=== PATIENT | female | born 1945 | race Caucasian/White ===

== ENCOUNTER 2017-12-16 06:14 | Emergency (ER) | payer OTHER ==
[2017-12-16] MEDS ORDERED: KETOROLAC 30 MG/ML INJ ONE (07:02)
[2017-12-16] MEDS ORDERED: NA CHLORIDE 0.9% 1,000 ML ONE (07:02)
[2017-12-16] MEDS ORDERED: DEXAMETHASONE 10 MG/ML VIAL ONE (07:02)
[2017-12-16 07:33] LABS: Absolute Lymphocytes (CBC) 0.8 K/uL (0.7-4.9); Absolute Monocytes 1.3 K/uL (0.1-1.3); Absolute Neutrophil 21.9 K/uL (1.8-8.0); Basophils % 0.3 % (0-1.3); Hematocrit 37.5 % (36.0-45.0); Lymphocytes % 3.2 % (15.3-44.8); MCH 30.9 pg (27.0-35.0); MPV 7.8 fL (7.6-11.3); Monocytes % 5.4 % (3.3-12.3); RBC Red Blood Cell Count 3.99 M/uL (3.86-4.86)
[2017-12-16 07:49] LABS: Albumin 3.6 g/dL (3.4-5.0); Bilirubin Total 0.3 mg/dL (0.2-1.0); Potassium 3.2 mmol/L (3.5-5.1); Protein, Total 6.4 g/dL (6.4-8.2)
[2017-12-16 08:01] LABS: Blood Morphology Comment NOT SEEN (NOT SEEN); Platelet Estimate ADEQ; Urine White Blood Cell Casts OK
--- NOTE | 2017-12-16 08:52 | RAD REPORT ---
EXAM DESCRIPTION: CT - Abdomen Pelvis W Contrast - 12/16/2017 8:23 am CLINICAL HISTORY: Abdominal pain, back pain, nausea, elevated white blood cell count COMPARISON: None. TECHNIQUE: Biphasic, helical CT imaging of the abdomen and pelvis was performed following 100 ml non -ionic IV contrast. No oral contrast was given. All CT scans are performed using dose optimization technique as appropriate and may include automated exposure control or mA/KV adjustment according to patient size. FINDINGS: No suspicious findings in the lung bases. No pericardial effusion. A 12 millimeter calcifi ed granuloma is present lower left lung field. The liver, spleen, and pancreas show no suspicious findings. Gallbladder and biliary tree are also wi thout suspicious finding. Symmetric renal function is seen with no hydronephrosis or suspicious renal mass. No pyelonephritis o r acute renal parenchymal process. No dilated bowel loops or bowel wall thickening. A few mildly prominent small bowel loops are present . This is not outside of normal range. A small bowel enteritis would be possible. No appendicitis fin dings. Patient has mild sigmoid diverticulosis without diverticulitis. There is minimal diverticulosi s elsewhere in the colon. No active colon process. No free air, free fluid or inflammatory stranding. Fat extends into the origin of the left inguinal canal. No abdominal wall hernia changes otherwise noted. No mass or bulky lymphadenopathy. The urinary bladder is without significant finding. No adren al abnormality. Disc and bony degenerative changes are present. No pathologic bone process identifiable. IMPRESSION: No obstruction, free air or surgically emergent finding. Minimal prominence of the small bowel loops. The this is subtle finding but small bowel enteritis wou ld be possible. No focal abnormality seen as a source for elevated white blood cell count.
[2017-12-16 09:38] LABS: Urine Blood NEGATIVE (NEG); Urine Glucose NEGATIVE (NEG); Urine Protein NEGATIVE (NEG); Urine Specific Gravity 1.015 (1.005-1.030); Urine pH 5.5 (5.0-7.0)
--- NOTE | 2017-12-16 10:04 | RAD REPORT ---
EXAM DESCRIPTION: RAD - Chest Single View - 12/16/2017 9:47 am CLINICAL HISTORY: Back pain, chest pain, sepsis COMPARISON: April 2014 TECHNIQUE: AP portable chest image was obtained 0936 hours . FINDINGS: Patient has interstitial fibrotic lung change. Interstitial markings in both lower lung fi elds have increased from the comparison. This is in part due to shallow inspiration. Progressive fibr osis or interstitial infiltrate can both have this appearance. No cardiomegaly or vascular engorgemen t. Significant failure or volume overload are doubtful. Increased fullness in the right peritracheal region is present. No similar finding on the prior study. While this may simply be summation of vascu lature due to portable imaging, development of a mediastinal or hilar mass cannot be excluded. No siria surable pleural effusion and no pneumothorax. No gross bony abnormality seen. No acute aortic finding s suspected. IMPRESSION: Prominent interstitial lung pattern progressive from 2013. Progressive fibrosis and inte rstitial pneumonia can both have this appearance. Right hilar and right peritracheal fullness is present, new from the prior examination. Vascular summation artifact and malignancy can have a similar appearance. Follow-up CT chest imaging is recommended to clear the mediastinum.
--- NOTE | 2017-12-16 11:18 | RAD REPORT ---
EXAM DESCRIPTION: CT - Thorax Wo Con - 12/16/2017 10:39 am CLINICAL HISTORY: Chest pain abnormal chest x-ray COMPARISON: Chest x-ray December 16, 2017 TECHNIQUE: Computed axial tomography of the chest was obtained. Contrast was not requested. All CT scans are performed using dose optimization technique as appropriate and may include automated exposure control or mA/KV adjustment according to patient size. FINDINGS: The evaluation of mediastinum, brooke and vessels is limited secondary to lack of IV contras t administration. A calcified granulomas present within the left lower lobe. A lung consolidation is not seen. Centrilo bular and paraseptal emphysema is present. The described prominence of the interstitial lung pattern on the chest x-ray represents mostly pulmonary vascularity. Mild subpleural interstitial lung opaciti es likely are chronic. No mediastinal or hilar lymphadenopathy is seen. A pleural effusion is not present. A pericardial effusion is not seen. A small hiatal hernia is present. IMPRESSION: COPD
--- NOTE | 2017-12-16 11:39 | ER ---
Nurse's Notes [facility] Name: Johnna Brown Age: 72 yrs Sex: Female : 1945 Arrival Date: 12/16/2017 Time: 06:16 Bed 7 Private MD: Diagnosis: COPD;Acute Gastroenteritis;Low back pain Presentation: 12/16 06:23 Presenting complaint: Patient states: lower back pain since 399. pt stated she "feels ak1 dry" pt c/o intermittent nausea since 399. Transition of care: patient was not received from another setting of care. Onset of symptoms was December 16, 2017. Risk Assessment: Do you want to hurt yourself or someone else? Patient reports no desire to harm self or others. Initial Sepsis Screen: Does the patient meet any 2 criteria? No. Patient's initial sepsis screen is negative. Does the patient have a suspected source of infection? No. Patient's initial sepsis screen is negative. Care prior to arrival: None. 06:23 Method Of Arrival: Wheelchair ak1 06:23 Acuity: KYLE 4 ak1 Triage Assessment: 06:27 General: Appears uncomfortable, Behavior is calm, cooperative. Pain: Complains of pain ak1 in back. EENT: No signs and/or symptoms were reported regarding the EENT system. Neuro: No deficits noted. Cardiovascular: No deficits noted. Respiratory: No deficits noted. GI: No signs and/or symptoms were reported involving the gastrointestinal system. : No signs and/or symptoms were reported regarding the genitourinary system. Derm: No signs and/or symptoms reported regarding the dermatologic system. Musculoskeletal: Reports pain in back. Historical: - Allergies: 06:47 No Known Allergies; lp1 - Home Meds: 06:46 verapamil 240 mg oral TbER once daily [Active]; lovastatin 10 mg oral tab once daily lp1 [Active]; meloxicam 15 mg oral tab 0.5 tab once daily [Active]; Flexeril 10 mg oral tab 2 tab daily [Active]; calcium carbonate 600 mg (1,500 mg) Oral tab daily [Active]; Fish Oil 1,000 mg oral cap daily [Active]; Cinnamon 1000 mg oral cap daily [Active]; aspirin 81 mg Oral TbEC 1 tab once daily [Active]; zolpidem 10 mg Oral tab 1 tab once daily [Active]; ibandronate 150 mg oral tab 1 tab once moly [Active]; tramadol 50 mg Oral tab twice a day [Active]; - PMHx: 06:27 Hypertension; Back pain; ak1 - PSHx: 06:27 Hysterectomy; Appendectomy; ak1 - Immunization history:: Adult Immunizations unknown. - Social history:: Smoking status: Patient uses tobacco products, smokes one pack cigarettes per day. - Ebola Screening: : No symptoms or risks identified at this time. Screenin:28 Abuse screen: Denies threats or abuse. Denies injuries from another. Nutritional ak1 screening: No deficits noted. Tuberculosis screening: No symptoms or risk factors identified. Fall Risk None identified. Assessment: 06:36 General: Appears in no apparent distress. comfortable, Behavior is calm, cooperative. rv Pain: Complains of pain in lumbar area, left low back and right low back. Neuro: Level of Consciousness is awake, alert, obeys commands, Oriented to person, place, time, situation. Cardiovascular: Capillary refill < 3 seconds. Respiratory: Airway is patent. GI: No signs and/or symptoms were reported involving the gastrointestinal system. : No signs and/or symptoms were reported regarding the genitourinary system. EENT: No signs and/or symptoms were reported regarding the EENT system. Derm: Skin is intact. 07:11 General: Appears in no apparent distress. comfortable, Behavior is calm, cooperative, hj appropriate for age. Pain: Complains of pain in right low back and left low back and lumbar area. Neuro: Level of Consciousness is awake, alert, obeys commands, Oriented to person, place, time, situation, Appropriate for age. Cardiovascular: Capillary refill < 3 seconds Patient's skin is warm and dry. Respiratory: Airway is patent Respiratory effort is even, unlabored, Respiratory pattern is regular, symmetrical. GI: No signs and/or symptoms were reported involving the gastrointestinal system. : No signs and/or symptoms were reported regarding the genitourinary system. EENT: No signs and/or symptoms were reported regarding the EENT system. Derm: No signs and/or symptoms reported regarding the dermatologic system. Musculoskeletal: Reports pain in right low back and left low back and lumbar area. 08:10 Reassessment: Patient and/or family updated on plan of care and expected duration. Pain hj level reassessed. Patient is alert, oriented x 3, equal unlabored respirations, skin warm/dry/pink. wheeled to CT;. 09:26 Reassessment: Patient appears in no apparent distress at this time. Patient and/or ch family updated on plan of care and expected duration. Pain level reassessed. Patient is alert, oriented x 3, equal unlabored respirations, skin warm/dry/pink. Patient states feeling better. Patient states symptoms have improved. Pain: Denies pain. Neuro: Level of Consciousness is awake, alert, obeys commands, Oriented to person, place, time, situation. Respiratory: Airway is patent Respiratory effort is even, unlabored, Breath sounds are coarse bilaterally. GI: No signs and/or symptoms were reported involving the gastrointestinal system. Abdomen is round non-distended, Bowel sounds present X 4 quads. Abd is soft and non tender X 4 quads. : No signs and/or symptoms were reported regarding the genitourinary system. Derm: Skin is intact, Skin is pink, warm \\T\\ dry. 11:04 Reassessment: Patient appears in no apparent distress at this time. Patient and/or ch family updated on plan of care and expected duration. Pain level reassessed. Patient is alert, oriented x 3, equal unlabored respirations, skin warm/dry/pink. pt educated on wait time and x ray results requiring a ct chest to rule out further disease processes's. pt verb understanding. drinking water, states she is comfortable. Patient denies pain at this time. Patient states feeling better. Patient states symptoms have improved. 12:03 Reassessment: Patient appears in no apparent distress at this time. Patient and/or ch family updated on plan of care and expected duration. Pain level reassessed. Patient is alert, oriented x 3, equal unlabored respirations, skin warm/dry/pink. Patient states feeling better. Patient states symptoms have improved. 12:19 Reassessment: [facility] SPEAKS WITH PT AND FAMILY TO REVIEW RESULTS. PT DISCHARGED NOW. Vital Signs: 06:27 BP 154 / 66; Pulse 114; Resp 20; Temp 98.1(TE); Pulse Ox 96% on R/A; Weight 61.23 kg ak1 (R); Height 5 ft. 1 in. (154.94 cm) (R); Pain 10/10; 07:12 BP 149 / 68; Pulse 101; Resp 18; Pulse Ox 97% on R/A; hj 08:23 BP 147 / 66; Pulse 99; Resp 18; Pulse Ox 97% on R/A; hj 09:26 BP 126 / 61; Pulse 85; Resp 14; Temp 98.2; Pulse Ox 96% on R/A; Pain 2/10; ch 11:04 BP 133 / 59; Pulse 84; Resp 20; Temp 98.5; Pulse Ox 94% on R/A; Pain 1/10; ch 12:03 BP 139 / 60; Pulse 79; Resp 18; Temp 98.4; Pulse Ox 99% on R/A; Pain 4/10; ch 06:27 Body Mass Index 25.51 (61.23 kg, 154.94 cm) ak1 ED Course: 06:16 Patient arrived in ED. al2 06:22 Juan Ramon Zamora, RN is Primary Nurse. bp 06:24 Triage completed. ak1 06:27 Arm band placed on Patient placed in an exam room, on a stretcher, on pulse oximetry, ak1 Patient notified of wait time. 06:28 Patient has correct armband on for positive identification. Placed in gown. Bed in low ak1 position. Call light in reach. Side rails up X2. Adult w/ patient. Pulse ox on. NIBP on. 06:46 Nando Broderick MD is Attending Physician. ps1 07:08 Primary Nurse role handed off by Juan Ramon Zamroa, INDIGO ag 07:11 Ziggy Jones, RN is Primary Nurse. hj 08:[address] via stretcher. sj 08:23 CT Abd/Pelvis - W/Contrast In Process Unspecified. EDMS 08:23 CT completed. Patient tolerated procedure well. Patient moved back from CT. sj 09:44 X-ray completed. Portable x-ray completed in exam room. Patient tolerated procedure ml well. 09:47 CXR XRAY In Process Unspecified. EDMS 10:19 Primary Nurse role handed off by Ziggy Jones, INDIGO ch 10:19 Esme Dowd, RN is Primary Nurse. ch 10:[address] In Process Unspecified. EDMS 11:41 Marcial Brock MD is Referral Physician. ps1 12:03 No provider procedures requiring assistance completed. IV discontinued, intact, ch bleeding controlled, No redness/swelling at site. Pressure dressing applied. Administered Medications: 07:11 Drug: Decadron 10 mg Route: IM; Site: left gluteus; rv 07:17 Follow up: Response: No adverse reaction hj 07:12 Drug: NS 0.9% 1000 ml Route: IV; Rate: 1 bolus; Site: right antecubital; rv 12:18 Follow up: IV Status: Completed infusion; IV Intake: 1000ml ch 07:12 Drug: TORadol 30 mg Route: IVP; Site: right antecubital; rv 07:14 Follow up: Response: No adverse reaction hj Intake: 12:18 IV: 1000ml; Total: 1000ml. ch Outcome: 11:39 Discharge ordered by . ps1 12:03 Discharged to home via wheelchair, with family. ch 12:03 Condition: improved 12:03 Discharge instructions given to patient, family, Instructed on discharge instructions, follow up and referral plans. medication usage, Demonstrated understanding of instructions, follow-up care, medications, Prescriptions given X 2. 12:19 Patient left the ED. ch Signatures: Dispatcher [employer] EDMS Esme Dowd RN RN Michelle Nelson Melissa ml Pena, Laura RN RN lp1 Hiwot Bray Amber RN RN ak1 Ziggy Jones RN RN hj Peltier, Brian, Nando Carter RN, MD MD ps1 Love, Angelica al2 Vicente, Ronaldo, RN RN rv Corrections: (The following items were deleted from the chart) 06:46 06:27 Allergies: No Known Allergies; ak1 lp1 06:46 06:27 Home Meds: Verapamil Oral; ak1 lp1 :46 06:27 Home Meds: Lovastatin Oral; ak1 lp1 06:46 06:27 Home Meds: meloxicam oral oral; ak1 lp1 06:46 06:27 Home Meds: Flexeril Oral; ak1 lp1
--- NOTE | 2017-12-16 11:39 | EDPHYS ---
Physician Documentation [facility] Name: Johnna Brown Age: 72 yrs Sex: Female : 1945 Arrival Date: 12/16/2017 Time: 06:16 Bed 7 Private MD: ED Physician Nando Broderick HPI: 12/16 06:55 This 72 yrs old Female presents to ER via Wheelchair with complaints of BODY ps1 ACHES. 06:55 patient with chronic back pain presenting with acute back pain that is radiating down ps1 the leg. Pain rated as moderate to severe. Used to see Dr. Lomeli (pain doctor) but moved out of town. Does not have a pain doctor although she tried [place] and did not want to maintain relationship. No fever. . Historical: - Allergies: 06:47 No Known Allergies; lp1 - Home Meds: 06:46 verapamil 240 mg oral TbER once daily [Active]; lovastatin 10 mg oral tab once daily lp1 [Active]; meloxicam 15 mg oral tab 0.5 tab once daily [Active]; Flexeril 10 mg oral tab 2 tab daily [Active]; calcium carbonate 600 mg (1,500 mg) Oral tab daily [Active]; Fish Oil 1,000 mg oral cap daily [Active]; Cinnamon 1000 mg oral cap daily [Active]; aspirin 81 mg Oral TbEC 1 tab once daily [Active]; zolpidem 10 mg Oral tab 1 tab once daily [Active]; ibandronate 150 mg oral tab 1 tab once moly [Active]; tramadol 50 mg Oral tab twice a day [Active]; - PMHx: 06:27 Hypertension; Back pain; ak1 - PSHx: 06:27 Hysterectomy; Appendectomy; ak1 - Immunization history:: Adult Immunizations unknown. - Social history:: Smoking status: Patient uses tobacco products, smokes one pack cigarettes per day. - Ebola Screening: : No symptoms or risks identified at this time. ROS: 06:55 Constitutional: Negative for fever, chills, and weight loss, Eyes: Negative for injury, ps1 pain, redness, and discharge, Cardiovascular: Negative for chest pain, palpitations, and edema, Respiratory: Negative for shortness of breath, cough, wheezing, and pleuritic chest pain, Abdomen/GI: Negative for abdominal pain, nausea, vomiting, diarrhea, and constipation, MS/Extremity: Negative for injury and deformity, Skin: Negative for injury, rash, and discoloration, Neuro: Negative for headache, weakness, numbness, tingling, and seizure. 06:55 Back: Positive for decreased range of motion, pain with movement, radiated pain. Exam: 06:55 Constitutional: This is a well developed, well nourished patient who is awake, alert, ps1 and in no acute distress. Head/Face: Normocephalic, atraumatic. Chest/axilla: Normal chest wall appearance and motion. Nontender with no deformity. No lesions are appreciated. Cardiovascular: Regular rate and rhythm. No gallops, murmurs, or rubs. Normal PMI, no JVD. No pulse deficits. Respiratory: Lungs have equal breath sounds bilaterally, clear to auscultation and percussion. No rales, rhonchi or wheezes noted. No increased work of breathing, no retractions or nasal flaring. Abdomen/GI: Soft, non-tender, with normal bowel sounds. No distension or tympany. No guarding or rebound. No evidence of tenderness throughout. Skin: Warm, dry with normal turgor. Normal color with no rashes, no lesions, and no evidence of cellulitis. MS/ Extremity: Pulses equal, no cyanosis. Neurovascular intact. Full, normal range of motion. 06:55 Back: pain, that is moderate, ROM is decreased, muscle spasm. Vital Signs: 06:27 BP 154 / 66; Pulse 114; Resp 20; Temp 98.1(TE); Pulse Ox 96% on R/A; Weight 61.23 kg ak1 (R); Height 5 ft. 1 in. (154.94 cm) (R); Pain 10/10; 07:12 BP 149 / 68; Pulse 101; Resp 18; Pulse Ox 97% on R/A; hj 08:23 BP 147 / 66; Pulse 99; Resp 18; Pulse Ox 97% on R/A; hj 09:26 BP 126 / 61; Pulse 85; Resp 14; Temp 98.2; Pulse Ox 96% on R/A; Pain 2/10; ch 11:04 BP 133 / 59; Pulse 84; Resp 20; Temp 98.5; Pulse Ox 94% on R/A; Pain 1/10; ch 12:03 BP 139 / 60; Pulse 79; Resp 18; Temp 98.4; Pulse Ox 99% on R/A; Pain 4/10; ch 06:27 Body Mass Index 25.51 (61.23 kg, 154.94 cm) ak1 MDM: 06:55 Data reviewed: vital signs, nurses notes. ED course: check labs and urine for other ps1 etiology of disease. Decadron IM and toradol, fluids. . 07:06 Patient medically screened. ps1 12/16 06:55 Order name: CBC with Diff; Complete Time: 08:02 ps1 12/16 08:02 Interpretation: Abnormal: WBC 24.0. ps1 12/16 06:55 Order name: CMP; Complete Time: 08:01 ps1 12/16 07:35 Order name: CBC Smear Scan; Complete Time: 08:02 EDMS 12/16 07:37 Order name: CT Abd/Pelvis - W/Contrast; Complete Time: 09:14 ps1 12/16 08:07 Order name: Urine Dipstick--Ancillary (enter results); Complete Time: 09:48 ag 12/16 09:15 Order name: CXR XRAY; Complete Time: 10:10 ps1 12/16 06:55 Order name: Urine Dipstick-Ancillary (obtain specimen); Complete Time: 08:07 ps1 12/16 10:12 Order name: Thorax Wo Con CT; Complete Time: 11:37 ps1 Administered Medications: 07:11 Drug: Decadron 10 mg Route: IM; Site: left gluteus; rv 07:17 Follow up: Response: No adverse reaction 07:12 Drug: NS 0.9% 1000 ml Route: IV; Rate: 1 bolus; Site: right antecubital; rv 12:18 Follow up: IV Status: Completed infusion; IV Intake: 1000ml 07:12 Drug: TORadol 30 mg Route: IVP; Site: right antecubital; rv 07:14 Follow up: Response: No adverse reaction Disposition: 12/16/17 11:39 Discharged to Home. Impression: Acute Gastroenteritis, COPD, Low back pain. - Condition is Stable. - Discharge Instructions: Back Pain, Adult, Musculoskeletal Pain, Nausea and Vomiting, Viral Gastroenteritis. - Prescriptions for Zofran 4 mg Oral Tablet - take 1 tablet by ORAL route every 12 hours As needed; 20 tablet. Medrol (Devan) 4 mg Oral Tablets, Dose Pack - take 1 tablet by ORAL route as directed - follow package instructions; 1 packet. - Medication Reconciliation Form, Thank You Letter, Antibiotic Education, Prescription Opioid Use form. - Follow up: Private Physician; When: As needed; Reason: Recheck today's complaints, Continuance of care, Re-evaluation by your physician. Follow up: Emergency Department; When: As needed; Reason: Fever > 102 F, Worsening of condition. Follow up: Marcial Brock MD; When: Today; Reason: Further diagnostic work-up, Recheck today's complaints, Re-evaluation by your physician. - Problem is new. - Symptoms have improved. Signatures: Dispatcher [employer] EDMS Esme Dowd RN RN Nelida Corral RN RN lp1 Theresa Buenrostro RN RN ak1 Nando Broderick MD MD ps1 Vicente, Ronaldo, RN RN rv Joaquin, Henry RN Corrections: (The following items were deleted from the chart) 06:46 06:27 Allergies: No Known Allergies; ak1 lp1 06:46 06:27 Home Meds: Verapamil Oral; ak1 lp1 06:46 06:27 Home Meds: Lovastatin Oral; ak1 lp1 06:46 06:27 Home Meds: meloxicam oral oral; ak1 lp1 06:46 06:27 Home Meds: Flexeril Oral; ak1 lp1 11:40 11:39 12/16/2017 11:39 Discharged to Home. Impression: COPD; Acute Gastroenteritis; ps1 Acute Cystitis. Condition is Stable. Forms are Medication Reconciliation Form, Thank You Letter, Antibiotic Education, Prescription Opioid Use. Follow up: Private Physician; When: As needed; Reason: Recheck today's complaints, Continuance of care, Re-evaluation by your physician. Follow up: Emergency Department; When: As needed; Reason: Fever > 102 F, Worsening of condition. Problem is new. Symptoms have improved. ps1 11:42 11:40 12/16/2017 11:39 Discharged to Home. Impression: Acute GastroenteritisCOPD. ps1 Condition is Stable. Forms are Medication Reconciliation Form, Thank You Letter, Antibiotic Education, Prescription Opioid Use. Follow up: Private Physician; When: As needed; Reason: Recheck today's complaints, Continuance of care, Re-evaluation by your physician. Follow up: Emergency Department; When: As needed; Reason: Fever > 102 F, Worsening of condition. Problem is new. Symptoms have improved. ps1 11:42 11:42 12/16/2017 11:39 Discharged to Home. Impression: Acute GastroenteritisCOPD. ps1 Condition is Stable. Discharge Instructions: Back Pain, Adult, Nausea and Vomiting, Viral Gastroenteritis. Prescriptions for Zofran 4 mg Oral Tablet - take 1 tablet by ORAL route every 12 hours As needed; 20 tablet, Medrol (Devan) 4 mg Oral Tablets, Dose Pack - take 1 tablet by ORAL route as directed - follow package instructions; 1 packet. and Forms are Medication Reconciliation Form, Thank You Letter, Antibiotic Education, Prescription Opioid Use. Follow up: Private Physician; When: As needed; Reason: Recheck today's complaints, Continuance of care, Re-evaluation by your physician. Follow up: Emergency Department; When: As needed; Reason: Fever > 102 F, Worsening of condition. Follow up: Marcial Brock; When: Today; Reason: Further diagnostic work-up, Recheck today's complaints, Re-evaluation by your physician. Problem is new. Symptoms have improved. ps1 12:19 11:42 12/16/2017 11:39 Discharged to Home. Impression: Acute GastroenteritisCOPD; Low ch back pain. Condition is Stable. Discharge Instructions: Back Pain, Adult, Nausea and Vomiting, Viral Gastroenteritis. Prescriptions for Zofran 4 mg Oral Tablet - take 1 tablet by ORAL route every 12 hours As needed; 20 tablet, Medrol (Devan) 4 mg Oral Tablets, Dose Pack - take 1 tablet by ORAL route as directed - follow package instructions; 1 packet. and Forms are Medication Reconciliation Form, Thank You Letter, Antibiotic Education, Prescription Opioid Use. Follow up: Private Physician; When: As needed; Reason: Recheck today's complaints, Continuance of care, Re-evaluation by your physician. Follow up: Emergency Department; When: As needed; Reason: Fever > 102 F, Worsening of condition. Follow up: Marcial Brock; When: Today; Reason: Further diagnostic work-up, Recheck today's complaints, Re-evaluation by your physician. Problem is new. Symptoms have improved. ps1
[2017-12-16 12:32] VITALS: BP 139/60; TEMP 98.4; O2SAT 99
== END 2017-12-16 12:19 | disposition home or self-care (01) ==
LOC: ER 06:14
DX: K52.9 Noninfective gastroenteritis and colitis, unspecified (principal); J44.9 Chronic obstructive pulmonary disease, unspecified; I10 Essential (primary) hypertension; F17.210 Nicotine dependence, cigarettes, uncomplicated; Z79.82 Long term (current) use of aspirin
CPT/HCPCS: 36415; 71045; 71250; 74177; 80053; 81003; 85025; 96361; 96372; 96374; 99284; J1100; J7030; Q9967

== ENCOUNTER 2018-03-10 10:35 | Day surgery (SDC) | payer OTHER ==
[2018-03-10] MEDS: TETRACAINE HCL 0.5% 2ML OPTH ONE ×3 (11:15→12:19)
[2018-03-10] MEDS: BUPIVACAINE 0.25% PF 10 ML VIAL ONE ×3 (11:15→12:20)
[2018-03-10] MEDS: LIDOCAINE 2% MPF 5 ML VIAL ONE ×3 (11:16→12:20)
[2018-03-10] MEDS ORDERED: CYCLOPENTOLATE 1% OPTH 2 ML ONE (11:17)
[2018-03-10] MEDS ORDERED: PHENYLEPHRINE 10% OPTH 5ML ONE (11:18)
[2018-03-10] MEDS ORDERED: NA CHLORIDE 0.9% 500 ML ONE (11:18)
[2018-03-10] MEDS ORDERED: EPINEPHRINE/PF 1 MG/ML AMP ONE ×2 (11:20→11:22)
[2018-03-10] MEDS ORDERED: NS 0.9% VIAL 10 ML ONE (11:20)
[2018-03-10] MEDS ORDERED: DUOVISC 1 KIT OPTH ONE (11:21)
[2018-03-10] MEDS ORDERED: MOXIFLOXACIN HCL 10 DROPS/ML **OR USE OPTH ONE (11:22)
[2018-03-10] MEDS ORDERED: PROPOFOL 200 MG/20 ML VIAL IV ONE (12:18)
[2018-03-10] MEDS ORDERED: LIDOCAINE 2% MPF 5 ML VIAL ONE (12:19)
[2018-03-10] MEDS ORDERED: BSS PLUS 500 ML BOTTLE IRR ONE (12:21)
--- OUTSIDE RECORDS SUMMARY | 2018-03-10 12:57 | XMS REPORT ---
:1945 Author Organization eClinicalWorks Care Team Providers Name Role Phone Terence Mendiola Provider Role Unavailable Allergies, Adverse Reactions, Alerts Substance Reaction Event Type N.K.D.A. Info Not Available Non Drug Allergy Problems Problem Type Condition Code Onset Dates Condition Status Problem Other sprain of left hip, initial S73.192A Active encounter Problem Left sided sciatica M54.32 Active Problem Left hip pain M25.552 Active Assessment Left sided sciatica M54.32 Active Assessment Other sprain of left hip, initial S73.192A Active encounter Assessment Left hip pain M25.552 Active Medications Medication Code Code Instructions Start End Status Dosage System Date Date Ibandronate [facility] [place] [address]-20 2.5 MG Orally Active as directed Sodium Lovastatin [facility] 14805461768 10 MG Orally Active 1 tablet Once a day with the evening meal Cyclobenzaprin [facility] [place] [address]-61 10 & 300 MG Active as directed e-Gabapentin Orally Aspirin 81 [facility] 20485898568 81 MG Orally Active 1 tablet Once a day Zolpidem [facility] 21449459553 10 MG Orally Active 1 tablet at Tartrate Once a day bedtime as needed Verapamil HCl [facility] 33826889264 240 MG Orally Jan 15, Active 1 tablet ER Once a day 2017 Meloxicam [facility] 93597749631 15 MG Orally Active 1 tablet Once a day Results No Known Results Summary Purpose eClinicalWorks Submission
--- NOTE | 2018-03-10 13:07 | P.BOP ---
Preoperative diagnosis: Nuclear sclerotic cataract and Fuch's dystrophy OS Postoperative diagnosis: Same Primary procedure: Phacoemulsification with IOL OS Estimated blood loss: None Anesthesia: Local (Subtenon's infusion with anesthesia for cataraact surgery) Complications: None Implants: ZCB00 +21.5 Transferred to: Other (Day surgery) Condition: Good
[2018-03-10 15:21] VITALS: BP 150/66; TEMP 99.5; O2SAT 99
--- NOTE | 2018-03-10 23:15 | OP ---
Date of Procedure: 03/10/2018 Surgeon: Natalie Gallo MD Anesthesiologist: 1. Fatoumata So CRNA. 2. Giovani Kingsley M.D. Preoperative Diagnosis: Nuclear sclerotic cataract and Fuchs dystrophy, left eye. Operation Performed: Phacoemulsification with intraocular lens implant, left eye. Anesthesia: Per cataract surgery. Complications: None. Description Of Procedure: In day surgery, the patient was prepped with Betadine and draped. A conju nctival incision was made in the inferior nasal quadrant with Son scissors. A sub-Tenon block c onsisting of a 1:1 mixture of 2% Xylocaine and 0.25% bupivacaine was placed through the conjunctival incision with a blunt cannula. A Honan balloon was placed over the eye and the patient was transferr ed to the operating room. In the operating room the patient was prepped and draped in the usual sterile fashion for ophthalmic surgery. A lid speculum was placed in the left eye. Two paracentesis sites were made superiorly and inferiorly in the limbal cornea. Viscoat was placed in the anterior chamber and a crescent blade wa s used to make a corneal groove and tunnel, and a keratome was used to enter the anterior chamber. P rovisc was placed in the anterior chamber and a 360 degree capsulotomy was performed with a cystitome . The lens was hydrodissected with BSS and rotated freely. The lens was removed with a stop and cho p technique. 5.75 phaco CDE was used to remove the lens. Residual cortex was removed with the irrig ation and aspiration. Provisc was placed in the capsular bag. A ZCB00 +21.5 lens was placed in the capsular bag without complications. Irrigation and aspiration were used to remove residual viscoelas tic. The paracentesis sites were hydrated with BSS. The wound and paracentesis sites were inspected and found to be watertight. Vigamox 0.07 cc was placed intracamerally at the end of the procedure. The eye was irrigated with balanced salt solution. The eye was patched with a soft cotton patch and Ace metal shield. The patient was returned to day surgery in good condition. Comments: Extra Viscoat was used. BSS plus was used. A scleral incision was created after incising the conjunctiva with Son scissors. Discharge Instructions: Ms. Brown is discharged to home in good condition and is to follow up wit mo Gallo in the morning. KATELYN/BRUNA Voice ID: [id number] Report ID: [id number]
== END 2018-03-10 13:45 | disposition home or self-care (01) ==
LOC: OR 10:35
PROVIDERS: ATTEND Ophthalmology Retina Specialist
PROC: 08RK3JZ Replacement of Left Lens with Synthetic Substitute, Percutaneous Approach (ICD-10-PCS; principal; 2018-03-10 11:15)
DX: H25.12 Age-related nuclear cataract, left eye (principal); H18.51 Endothelial corneal dystrophy; M81.0 Age-related osteoporosis without current pathological fracture; I10 Essential (primary) hypertension; E78.00 Pure hypercholesterolemia, unspecified; M41.9 Scoliosis, unspecified
CPT/HCPCS: 66984; J0171

== ENCOUNTER 2018-04-21 08:35 | Day surgery (SDC) | payer OTHER ==
--- OUTSIDE RECORDS SUMMARY | 2018-04-21 09:02 | XMS REPORT ---
[...] End Status Dosage System Date Date Ibandronate [facility] [address]-45 2.5 MG Orally Active as directed Sodium Lovastatin [facility] 23940245128 10 MG Orally Active 1 tablet Once a day with the evening meal Cyclobenzaprin [facility] [address]-09 10 & 300 MG Active as directed e-Gabapentin Orally Aspirin 81 [facility] 50478542968 81 MG Orally Active 1 tablet Once a day Zolpidem [facility] 64086335889 10 MG Orally Active 1 tablet at Tartrate Once a day bedtime as needed Verapamil HCl [facility] 89223898609 240 MG Orally Jan 15, Active 1 tablet ER Once a day 2017 Meloxicam [facility] 87185273827 15 MG Orally Active 1 tablet Once a day Results No Known Results Summary Purpose eClinicalWorks Submission
[2018-04-21] MEDS ORDERED: NA CHLORIDE 0.9% 500 ML ONE (09:10)
[2018-04-21] MEDS: CYCLOPENTOLATE 1% OPTH 2 ML ONE ×3 (09:15→09:25)
[2018-04-21] MEDS: PHENYLEPHRINE 10% OPTH 5ML ONE ×3 (09:15→09:25)
[2018-04-21] MEDS: LIDOCAINE 2% MPF 5 ML VIAL ONE ×2 (09:28→10:39)
[2018-04-21] MEDS: BUPIVACAINE 0.25% PF 10 ML VIAL ONE ×2 (09:28→10:39)
[2018-04-21] MEDS: TETRACAINE HCL 0.5% 2ML OPTH ONE ×2 (09:28→10:38)
[2018-04-21] MEDS ORDERED: NS 0.9% VIAL 10 ML ONE (10:00)
[2018-04-21] MEDS ORDERED: EPINEPHRINE/PF 1 MG/ML AMP ONE ×2 (10:01→10:02)
[2018-04-21] MEDS ORDERED: DUOVISC 1 KIT OPTH ONE ×2 (10:01→10:02)
[2018-04-21] MEDS ORDERED: BSS PLUS 500 ML BOTTLE IRR ONE (10:02)
[2018-04-21] MEDS ORDERED: MOXIFLOXACIN HCL 10 DROPS/ML **OR USE OPTH ONE (10:02)
[2018-04-21] MEDS ORDERED: PROPOFOL 200 MG/20 ML VIAL IV ONE (10:44)
[2018-04-21] MEDS ORDERED: LIDOCAINE 1% MPF 5 ML VIAL ONE (10:45)
--- NOTE | 2018-04-21 11:24 | P.BOP ---
Preoperative diagnosis: Nuclear sclerotic cataract and Fuch's dystrophy OD Postoperative diagnosis: Same Primary procedure: Phacoemulsification with IOL OD Estimated blood loss: None Anesthesia: Local (Subtenon's infusion with anesthesia for cataract surgery) Complications: None Implants: ZCB00 +21.5 Transferred to: Other (Day surgery) Condition: Good
[2018-04-21 12:57] VITALS: BP 148/62; TEMP 97.8; O2SAT 99
--- NOTE | 2018-04-21 21:54 | OP ---
Date of Procedure: 04/21/2018 Surgeon: Natalie Gallo MD Anesthesiologist: 1. Miguel Spear CRNA. 2. Trent Paez M.D. Preoperative Diagnosis: Nuclear sclerotic cataract and Fuch's dystrophy, right eye. Operation Performed: Phacoemulsification with intraocular lens implant, right eye. Anesthesia: Per Cataract Surgery. Complications: None. Description Of Procedure: In day surgery, the patient was prepped with Betadine and draped. A conjunctival incision was made in the inferior nasal quadrant with Son scissors. A sub-Tenon block consisting of a 1:1 mixture of 2% Xylocaine and 0.25% bupivacaine was placed through the conjunctival incision with a blunt cannula. A Honan balloon was placed over the eye and the patient was transferred to the operating room. In the operating room the patient was prepped and draped in the usual sterile fashion for ophthalmic surgery. A lid speculum was placed in the right eye. Two paracentesis sites were made superiorly and inferiorly in the limbal cornea. Viscoat was placed in the anterior chamber and a crescent blade was used to make a corneal groove and tunnel, and a keratome was used to enter the anterior chamber. Provisc was placed in the anterior chamber and a 360 degree capsulotomy was performed with a cystitome. The lens was hydrodissected with BSS and rotated freely. The lens was removed with a stop and chop technique. 4.51 phaco CDE was used to remove the lens. Residual cortex was removed with the irrigation and aspiration. Provisc was placed in the capsular bag. A ZCB00 +21.5 lens was placed in the capsular bag without complications. Irrigation and aspiration were used to remove residual viscoelastic. The paracentesis sites were hydrated with BSS. The wound and paracentesis sites were inspected and found to be watertight. Vigamox 0.07 cc was placed intracamerally at the end of the procedure. The eye was irrigated with balanced salt solution. The eye was patched with a soft cotton patch and Ace metal shield. The patient was returned to day surgery in good condition. Comments: 1:5000 epinephrine was placed in the anterior chamber prior to Viscoat. BSS Plus was used. A conjunctival incision was made temporally and the corneal incision was started in the sclera. Discharge Instructions: Ms. Brown is discharged to home in good condition. She is to follow up with Dr. Gallo in the morning. KATELYN/BRUNA Voice ID: [id number] Report ID: [id number] MTDUlices
== END 2018-04-21 11:46 | disposition home or self-care (01) ==
LOC: OR 08:35
PROVIDERS: ATTEND Ophthalmology Retina Specialist
PROC: 08RJ3JZ Replacement of Right Lens with Synthetic Substitute, Percutaneous Approach (ICD-10-PCS; principal; 2018-04-21 10:15)
DX: H25.11 Age-related nuclear cataract, right eye (principal); H18.51 Endothelial corneal dystrophy; I10 Essential (primary) hypertension; J44.9 Chronic obstructive pulmonary disease, unspecified; E78.00 Pure hypercholesterolemia, unspecified; M81.0 Age-related osteoporosis without current pathological fracture; M19.90 Unspecified osteoarthritis, unspecified site; M41.9 Scoliosis, unspecified; Z87.891 Personal history of nicotine dependence; Z88.8 Allergy status to other drugs, medicaments and biological substances
CPT/HCPCS: 66984; J0171 ×2; J2704

== ENCOUNTER 2021-12-15 07:58 | Inpatient (IN) | payer OTHER ==
[2021-12-15] MEDS ORDERED: NA CHLORIDE 0.9% 500 ML ONE (08:30)
[2021-12-15] MEDS ORDERED: DICYCLOMINE HCL 20 MG/2 ML AMP IM ONE (08:30)
--- NOTE | 2021-12-15 08:51 | RAD REPORT ---
EXAM DESCRIPTION: RAD - Chest Single View - 12/15/2021 8:45 am CLINICAL HISTORY: SOB COMPARISON: Chest Single View dated 12/16/2017; Abdomen Pelvis W Contrast dated 11/26/2021 FINDINGS: Lines: None. Lungs: No evidence of edema or pneumonia. Pleural: No significant pleural effusions or pneumothorax. Cardiac: The heart size is within normal limits. Bones: No acute fractures. Other: IMPRESSION: No acute cardiopulmonary disease.
[2021-12-15 09:01] LABS: Absolute Lymphocytes (CBC) 0.7 K/uL (0.7-4.9); Hematocrit 35.4 % (36.0-45.0); Lymphocytes % 3.8 % (15.3-44.8); MCV 92.5 fL (80-100); MPV 7.5 fL (7.6-11.3); RBC Red Blood Cell Count 3.82 M/uL (3.86-4.86)
[2021-12-15 09:23] LABS: Albumin 3.4 g/dL (3.4-5.0); Bilirubin Direct 0.2 mg/dL (0-0.2); Bilirubin Total 0.7 mg/dL (0.2-1.0); Potassium 3.4 mmol/L (3.5-5.1); Protein, Total 6.2 g/dL (6.4-8.2); Troponin High Sensitivity 4.9 pg/mL (<58.9)
--- NOTE | 2021-12-15 09:48 | EKG ---
Test Date: 2021-12-15 Test Time: 08:26:33 [employer]: PH MEASUREMENT RESULTS: Intervals: Rate: 68 ME: 134 QRSD: 72 QT: 402 QTc: 427 Ashby: P: 52 ME: 134 QRS: 69 T: 88 INTERPRETIVE STATEMENTS: Normal sinus rhythm Nonspecific ST abnormality Abnormal ECG Compared to ECG 04/21/2014 16:13:48 ST (T wave) deviation now present Electronically Signed On 12-15-21 09:48:26 CDT by Alex Campos
--- NOTE | 2021-12-15 09:55 | RAD REPORT ---
EXAM DESCRIPTION: CTAbdomen Pelvis W Contrast - 12/15/2021 9:41 am CLINICAL HISTORY: Abdominal pain, diarrhea COMPARISON: Abdomen Pelvis W Contrast dated 11/26/2021; Abdomen Pelvis W Contrast dated 04/17/2018 ; Abdomen Pelvis W Contrast dated 12/16/2017 TECHNIQUE: CT of the abdomen and pelvis was performed. All CT scans are performed using dose optimization technique as appropriate and may include automated exposure control or mA/KV adjustment according to patient size. FINDINGS: Lower chest: Small hiatal hernia with mild thickened distal esophagus that may reflect eso phagitis. Liver: No acute abnormality or suspicious lesions. Biliary: No biliary ductal dilatation. Stomach: No significant focal abnormality. Duodenum: No significant focal abnormality. Pancreas: No significant abnormality. Spleen: No significant abnormality. Adrenal: No suspicious lesions. Kidney/ureter: No hydronephrosis. No renal calculi. Retroperitoneum: No retroperitoneal adenopathy. Vascular: No aneurysm. Atherosclerosis Bowel: Pancolitis with particular involvement at the rectum. This is similar to 11/26/2021..No append icitis. Peritoneum: No ascites or free air. Bladder: Grossly unremarkable. Reproductive: No adnexal masses. Bones: No acute fracture. Grade 1 anterolisthesis of L4 on L5. Multilevel degenerative changes are pr esent in the spine. Other: n/a IMPRESSION: Pancolitis which is similar to 11/26/21. No bowel obstruction.
[2021-12-15] MEDS ORDERED: CIPROFLOXACIN HCL 500 MG TAB ONE (10:47)
[2021-12-15] MEDS ORDERED: METRONIDAZOLE 500mg IVPB 500 MG/100 ML BAG IV ONE (10:47)
--- NOTE | 2021-12-15 11:14 | ER ---
Nurse's Notes [facility] Name: Johnna Brown Age: 76 yrs Sex: Female : 1945 Arrival Date: 12/15/2021 Time: 08:00 Bed 5 Private MD: Reginald Whitlock Diagnosis: Diarrhea, unspecified;Abdominal pain, unspecified;Pancolitis Presentation: 12/15 08:09 Chief complaint: Patient states: " I woke up having diarrhea, Suzette had c diff before but vg1 I dont think this is what it is; and my heart is racing" Pt denies Chest pain, states SOB and ABD pain. 08:09 Coronavirus screen: Vaccine status: Patient reports receiving the 2nd dose of the covid vg1 vaccine. Ebola Screen: Patient denies exposure to infectious person. Patient denies travel to an Ebola-affected area in the 21 days before illness onset. Initial Sepsis Screen: Does the patient meet any 2 criteria? No. Patient's initial sepsis screen is negative. Does the patient have a suspected source of infection? No. Patient's initial sepsis screen is negative. Risk Assessment: Do you want to hurt yourself or someone else? Patient reports no desire to harm self or others. Onset of symptoms was December 15, 2021. 08:09 Method Of Arrival: Wheelchair vg1 08:09 Acuity: KYLE 3 vg1 Triage Assessment: 08:09 General: Appears uncomfortable, Behavior is calm, cooperative. Pain: Complains of pain vg1 in right lower quadrant and left lower quadrant Pain currently is 10 out of 10 on a pain scale. Pain began 1 hour ago. GI: Abdomen is flat, Reports diarrhea. Historical: - Allergies: 08:19 No Known Allergies; vg1 - PMHx: 08:19 Back pain; Cdiff; Hypercholesterolemia; Hypertension; colitis; vg1 - PSHx: 08:19 Appendectomy; pipo leg stents; hysterectomy; Neck sx; vg1 - Immunization history:: Client reports receiving the 2nd dose of the Covid vaccine. - Social history:: Smoking status: Patient reports the use of cigarette tobacco products, smokes one pack cigarettes per day. Screenin:29 Abuse screen: Denies threats or abuse. Denies injuries from another. Nutritional ph screening: No deficits noted. Tuberculosis screening: No symptoms or risk factors identified. Fall Risk None identified. Assessment: 08:28 General: Appears in no apparent distress. comfortable, slender, well groomed, Behavior ph is calm, cooperative, appropriate for age, Denies fever. Pain: Complains of pain in right lower quadrant and left lower quadrant Pain radiates to back. Neuro: Level of Consciousness is awake, alert, obeys commands, Oriented to person, place, time, situation. Cardiovascular: Reports fatigue, palpitations, shortness of breath, Capillary refill < 3 seconds in bilateral fingers Patient's skin is warm and dry. Rhythm is sinus rhythm. Respiratory: Reports shortness of breath Airway is patent Respiratory effort is even, unlabored, Respiratory pattern is regular, symmetrical. GI: Abdomen is non-distended, Reports lower abdominal pain, diarrhea, Patient currently denies nausea, vomiting. Derm: Skin is intact, Skin is pink, warm \\T\\ dry. Musculoskeletal: Circulation, motion, and sensation intact. Range of motion: intact in all extremities. 09:02 Reassessment: No changes from previously documented assessment. Patient and/or family bp updated on plan of care and expected duration. Pain level reassessed. 10:55 Reassessment: No changes from previously documented assessment. Patient and/or family bp updated on plan of care and expected duration. Pain level reassessed. 13:00 Reassessment: No changes from previously documented assessment. Patient and/or family bp updated on plan of care and expected duration. Pain level reassessed. ADMIT INITIATED. 15:00 Reassessment: ADMIT IN PROCESS. bp Vital Signs: 08:09 BP 141 / 62; Pulse 80; Resp 18; Temp 99.2(O); Pulse Ox 100% on R/A; Weight 46.72 kg; vg1 Height 5 ft. 1 in. (154.94 cm); Pain 10/10; 09:02 BP 129 / 48; Pulse 68; Resp 16; Pulse Ox 100% ; bp 10:00 BP 141 / 49; Pulse 69; Resp 17; Pulse Ox 100% ; bp 10:55 BP 106 / 71; Pulse 82; Resp 16; Pulse Ox 100% ; bp 13:00 BP 133 / 45; Pulse 77; Resp 21; Pulse Ox 97% ; bp 14:00 BP 146 / 49; Pulse 97; Resp 19; Pulse Ox 97% ; bp 15:59 BP 127 / 40; Pulse 78; Resp 20; Pulse Ox 96% ; bp 16:54 BP 139 / 52; Pulse 76; Resp 16 S; Pulse Ox 97% on R/A; jl7 08:09 Body Mass Index 19.46 (46.72 kg, 154.94 cm) vg1 ED Course: 08:00 Patient arrived in ED. rg4 08:03 Reginald Whitlock MD is Private Physician. rg4 08:08 Truong Rojas NP is PHCP. pm1 08:08 Indra Hernández MD is Attending Physician. pm1 08:09 Arm band placed on. vg1 08:11 Juan Ramon Zamora, [facility] is Primary Nurse. bp 08:19 Triage completed. vg1 08:29 Patient has correct armband on for positive identification. Bed in low position. Call ph light in reach. Side rails up X 1. Client placed on continuous cardiac and pulse oximetry monitoring. NIBP monitoring applied. 08:35 Inserted saline lock: 20 gauge in right forearm, using aseptic technique. Blood bp collected. 08:47 XRAY Chest (1 view) In Process Unspecified. EDMS 09:42 CT Abd/Pelvis - IV Contrast Only In Process Unspecified. EDMS 11:13 Reginald Whitlock MD is Hospitalizing Provider. pm1 16:00 No provider procedures requiring assistance completed. Patient admitted, IV remains in bp place. Administered Medications: 08:35 Drug: Bentyl (dicyclomine) 20 mg Route: IM; Site: right gluteus; bp 10:01 Follow up: Response: No adverse reaction bp 08:35 Drug: NS 0.9% 500 ml Route: IV; Rate: bolus; Site: right forearm; bp 09:30 Follow up: Response: No adverse reaction; IV Status: Completed infusion; IV Intake: jl7 500ml 10:15 Drug: Cipro (ciprofloxacin) 500 mg Route: PO; bp 13:45 Follow up: Response: No adverse reaction bp 10:15 Drug: Flagyl (metroNIDAZOLE) 500 mg Volume: 100 ml; Route: IVPB; Rate: 200 ml/hr; bp Infused Over: 30 mins; Site: right forearm; 13:46 Follow up: IV Status: Completed infusion; IV Intake: 100ml bp 13:45 Drug: NS 0.9% 1000 ml Route: IV; Rate: 100 ml/hr; Site: right forearm; bp 16:00 Follow up: IV Status: Infusion continued upon admission bp 13:46 Drug: morphine 2 mg Route: IVP; Infused Over: 4 mins; Site: right forearm; bp 16:00 Follow up: Response: No adverse reaction bp 13:46 Drug: Zofran (Ondansetron) 4 mg Route: IVP; Site: right forearm; bp 16:00 Follow up: Response: No adverse reaction bp Medication: 08:29 VIS not applicable for this client. ph Intake: 09:30 IV: 500ml; Total: 500ml. jl7 13:46 IV: 100ml; Total: 600ml. bp Outcome: 11:13 Decision to Hospitalize by Provider. pm1 17:08 Admitted to Med/surg accompanied by tech, via stretcher, room 220, with chart, Report jl7 called to [facility] Vigil 17:08 Condition: stable 17:08 Discharge instructions given to patient, Instructed on the need for admit, Demonstrated understanding of instructions. 17:08 Patient left the ED. saji Signatures: Dispatcher [employer] EDRadha Carrasco, RN RN ph Truong Rojas, CHERISE SEWING MACHINE MECHANIC pm1 Emelia Brooks4 Lauren Lee RN RN jl7 Juan Ramon Zamora RN Kristy Morrissey RN RN vg1
--- NOTE | 2021-12-15 11:14 | EDPHYS ---
Physician Documentation [facility] Name: Johnna Brown Age: 76 yrs Sex: Female : 1945 Arrival Date: 12/15/2021 Time: 08:00 Bed 5 Private MD: Reginald Whitlock ED Physician Indra Hernández HPI: 12/15 08:21 This 76 yrs old Female presents to ER via Wheelchair with complaints of Diarrhea, pm1 Palpitations. 08:21 The patient presents to the emergency department with diarrhea, 2 times since the onset pm1 of symptoms. Onset: The symptoms/episode began/occurred this morning. Possible causes: unknown. The symptoms are aggravated by nothing. The symptoms are alleviated by nothing. Associated signs and symptoms: Pertinent positives: abdominal pain, palpitations and generalized weakness, Pertinent negatives: dysuria, fever, nausea, vomiting. Severity of symptoms: in the emergency department the symptoms are unchanged. The patient has experienced similar episodes in the past, several times. The patient has been recently seen by a physician: Dr. Tse yesterday. Patient with no complaints at that time. Had lab work done yesterday. Historical: - Allergies: 08:19 No Known Allergies; vg1 - PMHx: 08:19 Back pain; Cdiff; Hypercholesterolemia; Hypertension; colitis; vg1 - PSHx: 08:19 Appendectomy; pipo leg stents; hysterectomy; Neck sx; vg1 - Immunization history:: Client reports receiving the 2nd dose of the Covid vaccine. - Social history:: Smoking status: Patient reports the use of cigarette tobacco products, smokes one pack cigarettes per day. ROS: 08:21 Constitutional: Negative for fever, chills, and weight loss, Cardiovascular: Negative pm1 for chest pain, palpitations, and edema, Respiratory: Negative for shortness of breath, cough, wheezing, and pleuritic chest pain. 08:21 Back: Negative for injury and pain, : Negative for injury, bleeding, discharge, and swelling, MS/Extremity: Negative for injury and deformity, Skin: Negative for injury, rash, and discoloration. 08:21 Abdomen/GI: Positive for abdominal pain, diarrhea, Negative for nausea and vomiting, black/tarry stool, rectal bleeding, foul smelling stool. 08:21 Neuro: Positive for generalized weakness, Negative for headache, numbness, tingling. 08:21 All other systems are negative. Exam: 08:21 Constitutional: This is a well developed, well nourished patient who is awake, alert, pm1 and in no acute distress. Head/Face: Normocephalic, atraumatic. 08:21 Back: No spinal tenderness. No costovertebral tenderness. Full range of motion. Skin: Warm, dry with normal turgor. Normal color with no rashes, no lesions, and no evidence of cellulitis. MS/ Extremity: Pulses equal, no cyanosis. Neurovascular intact. Full, normal range of motion. 08:21 Cardiovascular: Exam negative for acute changes, Rate: normal, Rhythm: regular, Pulses: no pulse deficits are appreciated, Heart sounds: normal, normal S1and S2. 08:21 Respiratory: Exam negative for acute changes, respiratory distress, shortness of breath. 08:21 Abdomen/GI: Inspection: abdomen appears normal, Palpation: soft, in all quadrants, mild abdominal tenderness, in the suprapubic area and left lower quadrant. 08:21 Neuro: Exam negative for acute changes, Orientation: is normal, Mentation: is normal, Motor: is normal, moves all fours. Vital Signs: 08:09 BP 141 / 62; Pulse 80; Resp 18; Temp 99.2(O); Pulse Ox 100% on R/A; Weight 46.72 kg; vg1 Height 5 ft. 1 in. (154.94 cm); Pain 10/10; 09:02 BP 129 / 48; Pulse 68; Resp 16; Pulse Ox 100% ; bp 10:00 BP 141 / 49; Pulse 69; Resp 17; Pulse Ox 100% ; bp 10:55 BP 106 / 71; Pulse 82; Resp 16; Pulse Ox 100% ; bp 13:00 BP 133 / 45; Pulse 77; Resp 21; Pulse Ox 97% ; bp 14:00 BP 146 / 49; Pulse 97; Resp 19; Pulse Ox 97% ; bp 15:59 BP 127 / 40; Pulse 78; Resp 20; Pulse Ox 96% ; bp 16:54 BP 139 / 52; Pulse 76; Resp 16 S; Pulse Ox 97% on R/A; jl7 08:09 Body Mass Index 19.46 (46.72 kg, 154.94 cm) vg1 MDM: 08:08 Patient medically screened. pm1 11:12 Data reviewed: vital signs. Data interpreted: Pulse oximetry: on room air is 100 %. pm1 Interpretation: normal. 11:12 Physician consultation: Reginald Whitlock MD regarding admission, patient's condition, and pm1 will see patient would like consultation with Dr. Tse. Patient saw the patient yesterday. If he is not available for consultation he will continue treatment with antibiotics and IV fluids. 12/15 08:20 Order name: Basic Metabolic Panel; Complete Time: 09:33 pm12/15 08:20 Order name: CBC with Diff; Complete Time: 09:33 pm12/15 08:20 Order name: LFT's; Complete Time: 09:33 pm12/15 08:20 Order name: Magnesium; Complete Time: 09:33 pm12/15 08:20 Order name: NT PRO-BNP; Complete Time: 09:33 pm1 12/15 08:20 Order name: PT-INR; Complete Time: 09:56 pm1 12/15 08:20 Order name: Troponin HS; Complete Time: 09:33 pm12/15 08:20 Order name: COVID-19 SARS RT PCR (Document "Date of Onset" if Symptomatic); Complete pm1 Time: 11:29 12/15 11:02 Order name: C.difficile 12/15 11:02 Order name: Fecal Leukocyte Stain 12/15 11:02 Order name: Occult Blood 12/15 11:02 Order name: Ova And Parasites 12/15 11:02 Order name: Stool Culture 12/15 13:50 Order name: Urine Microscopic Only 12/15 08:20 Order name: XRAY Chest (1 view); Complete Time: 09:33 pm12/15 08:20 Order name: EKG; Complete Time: 08:20 pm12/15 08:20 Order name: Cardiac monitoring; Complete Time: 08:28 pm12/15 08:20 Order name: EKG - Nurse/Tech; Complete Time: 08:28 pm12/15 08:20 Order name: IV Saline Lock; Complete Time: 08:37 pm12/15 08:20 Order name: Labs collected and sent; Complete Time: 08:36 pm12/15 08:20 Order name: O2 Per Protocol; Complete Time: 08:28 pm1 12/15 08:20 Order name: O2 Sat Monitoring; Complete Time: 08:28 pm1 12/15 08:20 Order name: CT Abd/Pelvis - IV Contrast Only; Complete Time: 09:56 pm1 Administered Medications: 08:35 Drug: Bentyl (dicyclomine) 20 mg Route: IM; Site: right gluteus; bp 10:01 Follow up: Response: No adverse reaction bp 08:35 Drug: NS 0.9% 500 ml Route: IV; Rate: bolus; Site: right forearm; bp 09:30 Follow up: Response: No adverse reaction; IV Status: Completed infusion; IV Intake: jl7 500ml 10:15 Drug: Cipro (ciprofloxacin) 500 mg Route: PO; bp 13:45 Follow up: Response: No adverse reaction bp 10:15 Drug: Flagyl (metroNIDAZOLE) 500 mg Volume: 100 ml; Route: IVPB; Rate: 200 ml/hr; bp Infused Over: 30 mins; Site: right forearm; 13:46 Follow up: IV Status: Completed infusion; IV Intake: 100ml bp 13:45 Drug: NS 0.9% 1000 ml Route: IV; Rate: 100 ml/hr; Site: right forearm; bp 16:00 Follow up: IV Status: Infusion continued upon admission bp 13:46 Drug: morphine 2 mg Route: IVP; Infused Over: 4 mins; Site: right forearm; bp 16:00 Follow up: Response: No adverse reaction bp 13:46 Drug: Zofran (Ondansetron) 4 mg Route: IVP; Site: right forearm; bp 16:00 Follow up: Response: No adverse reaction bp Disposition: 17:34 Co-signature as Attending Physician, Indra Hernández MD I agree with the assessment and kdr plan of care. Disposition Summary: 12/15/21 11:13 Hospitalization Ordered Hospitalization Status: Inpatient Admission pm1 Provider: Reginald Whitlock pm1 Location: Telemetry/[facility] (Inpatient) pm1 Condition: Stable pm1 Problem: new pm1 Symptoms: have improved pm1 Bed/Room Type: Standard pm1 Room Assignment: 220(12/15/21 16:35) eb Diagnosis - Diarrhea, unspecified pm1 - Abdominal pain, unspecified pm1 - Pancolitis pm1 Forms: - Medication Reconciliation Form pm1 - SBAR form pm1 Signatures: Dispatcher [employer] EDMS Indra Hernández MD MD kdr rTuong Rojas NP LINE OPERATOR pm1 Juan Ramon Zamora, RN RN Marina Phillips Victoria, RN RN vg1 Lauren eLe RN jl7 Corrections: (The following items were deleted from the chart) 15:25 11:12 Physician consultation: Reginald Whitlock MD regarding admission, patient's pm1 condition, and will see patient pm1 16:35 11:13 pm1 eb
[2021-12-15] MEDS ORDERED: ONDANSETRON 4 MG/2 ML VIAL ONE (13:44)
[2021-12-15] MEDS ORDERED: MORPHINE 2 MG/ML SYR ONE (13:44)
[2021-12-15] MEDS ORDERED: NA CHLORIDE 0.9% 1,000 ML ONE (13:44)
[2021-12-15] MEDS: NA CHLORIDE 0.9% 1,000 ML IV SCH (17:00)
[2021-12-15] MEDS: METRONIDAZOLE 500mg IVPB 500 MG/100 ML BAG IV SCH (17:41)
[2021-12-15 17:57] VITALS: BMI 19.4
[2021-12-15] MEDS ORDERED: dexAMETHasone 4 MG/ML VIAL IV PRN (20:42)
[2021-12-15] MEDS ORDERED: CIPROFLOXACIN HCL 500 MG TAB PO SCH (21:00)
[2021-12-15 22:12] LABS: Urine Bacteria <20 /HPF (<20); Urine RBC <5 /HPF (NONE SEEN)
[2021-12-16] MEDS: METRONIDAZOLE 500mg IVPB 500 MG/100 ML BAG IV SCH ×3 (01:49→16:16)
[2021-12-16] MEDS: NA CHLORIDE 0.9% 1,000 ML IV SCH ×2 (04:22→13:03)
[2021-12-16 04:56] LABS: Absolute Lymphocytes (CBC) 0.9 K/uL (0.7-4.9); Hematocrit 34.8 % (36.0-45.0); Lymphocytes % 9.1 % (15.3-44.8); MCV 93.2 fL (80-100); MPV 7.6 fL (7.6-11.3); RBC Red Blood Cell Count 3.73 M/uL (3.86-4.86)
[2021-12-16 05:12] LABS: Bilirubin Direct 0.2 mg/dL (0-0.2); Bilirubin Total 0.5 mg/dL (0.2-1.0); Potassium 3.4 mmol/L (3.5-5.1); Protein, Total 5.6 g/dL (6.4-8.2)
[2021-12-16 10:27] LABS: C.diff Antigen/Toxin Ag pos : Tox pos (NEG : NEG)
[2021-12-16] MEDS: LACTOBACILLUS/ACIDOPHILUS TAB PO SCH ×2 (12:48→16:17)
[2021-12-16] MEDS ORDERED: POTASSIUM CL SA 10 MEQ TAB PO ONE (13:00)
[2021-12-16] MEDS: DICYCLOMINE HCL 10 MG CAP PO SCH ×2 (13:53→19:59)
[2021-12-16] MEDS: DIPHENOX/ATROP SULF 1 TAB PO PRN (13:56)
[2021-12-16] MEDS ORDERED: DICYCLOMINE HCL 10 MG CAP PO SCH (14:00)
[2021-12-16] MEDS: VERAPAMIL HCL 120 MG TAB PO SCH (16:40)
[2021-12-16] MEDS: ZOLPIDEM TARTRATE 5 MG TABLET PO SCH (19:59)
[2021-12-17] MEDS: NA CHLORIDE 0.9% 1,000 ML IV SCH ×3 (00:05→16:52)
[2021-12-17] MEDS: METRONIDAZOLE 500mg IVPB 500 MG/100 ML BAG IV SCH ×3 (00:06→16:53)
--- NOTE | 2021-12-17 00:35 | PN ---
Date of Progress Note: 12/16/2021 The patient states she feels somewhat better since the IV was started, however, she continued to have diarrhea. This has been an off and on problem for a number of months now and she has had multiple t reatments including IV antibiotics, Flagyl, and vancomycin. She has been hospitalized on a few occas ions. The possibility of a fecal implant was discussed with her and she states this has not been bro ught up before. She is being seen by a hot blast worker, in fact was seen the day before and was ba sically asymptomatic until this episode became more marked. She has had numerous workups and other t quiroz the C diff, no specific diagnosis has been made. The other significant factor is the significant weight loss. Whether this is due to malabsorption type syndrome or decreased intake remains to be se en. She will be followed over the next few days. I have added Lomotil to the regimen, which she sta rivka she has not had before and to continue with the Bentyl and her electrolyte situation. Her CT sca n showed pancolitis, the same as it was a couple of weeks earlier when she was admitted. Some questi on about her Cipro sensitivity, not sure there was allergy to Cipro, but she did have some urticaria and since that time she has had p.o. Cipro in the ER and prior to coming to the floor care without hawkins ving a reaction. HR/MODL Voice ID: [id number] Report ID: [id number]
[2021-12-17 06:29] LABS: Bicarbonate 28 mmol/L (21-32); Glomerular Filtration Rate 104 ml/min (=/>90); Glucose Level 86 mg/dL (74-106); Magnesium 1.8 mg/dL (1.8-2.4); Potassium 3.5 mmol/L (3.5-5.1); Sodium Level 140 mmol/L (136-145)
[2021-12-17 06:37] LABS: BUN Blood Urea Nitrogen < 3 mg/dL (7-18)
[2021-12-17] MEDS ORDERED: POTASSIUM CL SA 10 MEQ TAB PO ONE ×2 (07:17→09:00)
[2021-12-17] MEDS: CETIRIZINE HCL 5 MG TABLET PO SCH (08:06)
[2021-12-17] MEDS: DICYCLOMINE HCL 10 MG CAP PO SCH ×3 (08:07→21:01)
[2021-12-17] MEDS: CLOPIDOGREL 75 MG TABLET PO SCH (08:07)
[2021-12-17] MEDS: PANTOPRAZOLE 40MG TABLET PO SCH (08:08)
[2021-12-17] MEDS: LACTOBACILLUS/ACIDOPHILUS TAB PO SCH ×3 (08:08→16:53)
[2021-12-17] MEDS: ESCITALOPRAM 20 MG TAB PO SCH (08:08)
[2021-12-17] MEDS: CYANOCOBALAMIN 1,000 MCG TAB PO SCH (08:09)
[2021-12-17] MEDS: VERAPAMIL HCL 120 MG TAB PO SCH ×2 (08:11→21:03)
[2021-12-17] MEDS: DIPHENOX/ATROP SULF 1 TAB PO PRN (08:16)
[2021-12-17] MEDS ORDERED: MAGNESIUM SULFATE 1 gm IVPB 1 GM/100 ML BAG IV ONE ×2 (09:00)
[2021-12-17] MEDS: DIPHENOX/ATROP SULF 1 TAB PO SCH ×2 (14:04→16:56)
--- NOTE | 2021-12-17 17:27 | PN ---
Date of Progress Note: 12/17/2021 The patient states her diarrhea subsided someone down about half still puts her over 6 to 12 x24 hours. She has not taken Lomotil on a regular basis; however, we will change it scheduled and she states she is hungry though, so we will increase the diet. Depending on this combination, we wi ll determine whether she could be discharged on oral medications tomorrow. HR/MODL Voice ID: [id number] Report ID: [id number]
[2021-12-17] MEDS: ZOLPIDEM TARTRATE 5 MG TABLET PO SCH (21:01)
[2021-12-17] MEDS: Banana Flakes/T-Galactooligos 1 Dose Packet PO SCH (21:02)
[2021-12-17] MEDS: ENSURE HIGH PROTEIN 237 ML CAN PO SCH (21:02)
[2021-12-18] MEDS: METRONIDAZOLE 500mg IVPB 500 MG/100 ML BAG IV SCH ×3 (00:53→16:07)
[2021-12-18] MEDS: DIPHENOX/ATROP SULF 1 TAB PO SCH ×4 (00:54→18:13)
[2021-12-18 04:36] LABS: Bicarbonate 29 mmol/L (21-32); Glomerular Filtration Rate 106 ml/min (=/>90); Glucose Level 90 mg/dL (74-106); Magnesium 2.1 mg/dL (1.8-2.4); Potassium 3.8 mmol/L (3.5-5.1); Sodium Level 141 mmol/L (136-145)
[2021-12-18 04:39] LABS: BUN Blood Urea Nitrogen < 3 mg/dL (7-18)
[2021-12-18] MEDS: NA CHLORIDE 0.9% 1,000 ML IV SCH ×3 (06:08→15:00)
[2021-12-18] MEDS ORDERED: POTASSIUM CL SA 10 MEQ TAB PO ONE (07:00)
[2021-12-18] MEDS: CLOPIDOGREL 75 MG TABLET PO SCH (08:07)
[2021-12-18] MEDS: VERAPAMIL HCL 120 MG TAB PO SCH ×2 (08:07→20:06)
[2021-12-18] MEDS: LACTOBACILLUS/ACIDOPHILUS TAB PO SCH ×3 (08:08→16:06)
[2021-12-18] MEDS: ESCITALOPRAM 20 MG TAB PO SCH (08:08)
[2021-12-18] MEDS: CYANOCOBALAMIN 1,000 MCG TAB PO SCH (08:08)
[2021-12-18] MEDS: DICYCLOMINE HCL 10 MG CAP PO SCH ×3 (08:08→20:05)
[2021-12-18] MEDS: CETIRIZINE HCL 5 MG TABLET PO SCH (08:08)
[2021-12-18] MEDS: Banana Flakes/T-Galactooligos 1 Dose Packet PO SCH ×2 (08:10→20:06)
[2021-12-18] MEDS: ENSURE HIGH PROTEIN 237 ML CAN PO SCH ×2 (08:11→20:06)
[2021-12-18] MEDS: PANTOPRAZOLE 40MG TABLET PO SCH (08:12)
[2021-12-18 09:50] VITALS: O2SAT 92
--- NOTE | 2021-12-18 18:54 | PN ---
Date of Progress Note: 12/18/2021 The patient states it is the best day she has had in weeks. She only had 2 diarrhea type stools. No t sure if this combination of the Lomotil and Bentyl or whether cumulatively from the antibiotic. We will discuss the latter situation with Pharmacy and we may change prior to possibly discharging her tomorrow after discussion with the e/m engineer. HR/MODL Voice ID: [id number] Report ID: [id number]
[2021-12-18] MEDS: ZOLPIDEM TARTRATE 5 MG TABLET PO SCH (20:05)
[2021-12-19] MEDS: DIPHENOX/ATROP SULF 1 TAB PO SCH ×3 (01:42→13:33)
[2021-12-19] MEDS: METRONIDAZOLE 500mg IVPB 500 MG/100 ML BAG IV SCH ×2 (01:43→09:19)
[2021-12-19] MEDS: NA CHLORIDE 0.9% 1,000 ML IV SCH ×2 (01:44→06:39)
[2021-12-19 04:04] LABS: Absolute Lymphocytes (CBC) 1.5 K/uL (0.7-4.9); Hematocrit 31.4 % (36.0-45.0); Lymphocytes % 21.4 % (15.3-44.8); MCV 91.7 fL (80-100); MPV 7.5 fL (7.6-11.3); RBC Red Blood Cell Count 3.42 M/uL (3.86-4.86)
[2021-12-19 04:19] LABS: Bicarbonate 31 mmol/L (21-32); Glomerular Filtration Rate 103 ml/min (=/>90); Glucose Level 87 mg/dL (74-106); Potassium 4.2 mmol/L (3.5-5.1); Sodium Level 140 mmol/L (136-145)
[2021-12-19 04:24] LABS: BUN Blood Urea Nitrogen < 3 mg/dL (7-18)
[2021-12-19] MEDS: ESCITALOPRAM 20 MG TAB PO SCH (09:00)
[2021-12-19] MEDS: CLOPIDOGREL 75 MG TABLET PO SCH (09:20)
[2021-12-19] MEDS: DICYCLOMINE HCL 10 MG CAP PO SCH ×2 (09:21→13:33)
[2021-12-19] MEDS: CYANOCOBALAMIN 1,000 MCG TAB PO SCH (09:21)
[2021-12-19] MEDS: CETIRIZINE HCL 5 MG TABLET PO SCH (09:21)
[2021-12-19] MEDS: LACTOBACILLUS/ACIDOPHILUS TAB PO SCH ×2 (09:21→11:27)
[2021-12-19] MEDS: Banana Flakes/T-Galactooligos 1 Dose Packet PO SCH (10:08)
[2021-12-19] MEDS: ENSURE HIGH PROTEIN 237 ML CAN PO SCH (10:10)
[2021-12-19] MEDS: PANTOPRAZOLE 40MG TABLET PO SCH (10:10)
[2021-12-19] MEDS: VERAPAMIL HCL 120 MG TAB PO SCH (11:27)
[2021-12-19 12:59] VITALS: BP 130/61; TEMP 99.8
--- NOTE | 2021-12-19 15:13 | PN ---
Date of Progress Note: 12/19/2021 The patient states she has had 4 bowel movements in the 7 o'clock this morning, somewhat formed, whic h is the best it has been. She also feels better. The combination of Flagyl, Lomotil, Bentyl, and D ecadron may be enough to control her symptoms. We will discuss further with her tire mechanic. In the meantime, continue her on the same regimen for today and possibly discharge later today or in the a.m. HR/MODL Voice ID: [id number] Report ID: [id number]
--- OUTSIDE RECORDS SUMMARY | 2022-01-03 04:53 | XMS REPORT | Continuity of Care Document ---
:1945 Author Organization [facility] t Address [address] [place] [address] Dr. Sal[address] [place] [address] Care Team Providers Name Role Phone SOY JONES Attending Clinician Unavailable ED LYNCH Admitting Clinician Unavailable Problems Condition Condition Condition Status Onset Resolution Last Treating Co mments Source Name Details Category Date Date Treatment Clinician Date Other Other Diagnosis Active Common sprain of sprain of Spir it left hip, left hip, - [facility] I initial initial [facility] Left sided Left sided Diagnosis Active Common sciatica sciatica [facility] Left hip Left hip Diagnosis Active Com mon pain pain [facility] Allergies, Adverse Reactions, Alerts Allergy Allergy Status Severity Reaction(s) Onset Inactive Treating Comm ents Source Name Type Date Date Clinician NO KNOWN Allergy Active [facility] Medications Ordered Filled Start Stop Current Ordering Indication Dosage Frequency Signature Comments Components Source Medication Medication Date Date Medication? Clinician (SIG) Name Name Verapamil Verapamil Yes Terence 1 tablet Common HCl ER HCl ER [address] [place] [facility] 00:00: - [facility] 00 [facility] Ibandronate Ibandronate Yes Terence as Common Sodium Sodium [place] directed Spiri t [facility] Lovastatin Lovastatin Yes Terence 1 tablet Common [place] with the [facility] evening [facility] meal [facility] Cyclobenzap Cyclobenzap Yes Terence as Common rine-Gabape rine-Gabape [place] directed [facility] ntin ntin [facility] Aspirin 81 Aspirin 81 Yes Terence 1 tablet Common [place] [facility] Zolpidem Zolpidem Yes Terence 1 tablet C ommon Tartrate Tartrate [place] at bedtime [facility] as needed [facility] Meloxicam Meloxicam Yes Terence 1 tablet Common [place] [facility] Vital Signs Vital Name Observation Time Observation Value Comments Source HEIGHT 2020-06-20 11:40:00 157.5 cm WEIGHT 2020-06-20 11:40:00 62.596 kg WEIGHT 2020-06-19 17:15:00 62.596 kg HEIGHT 2020-06-20 11:40:00 157.5 cm WEIGHT 2020-06-20 11:40:00 62.596 kg WEIGHT 2020-06-19 17:15:00 62.596 kg Procedures This patient has no known procedures. Encounters Start End Encounter Admission Attending Care Care Encounter Source Date/Time Date/Time Type Type Clinicians Facility Department ID 2020-06-19 2020-06-19 Emergency ER [facility] Emergency [id number] [facility] 16:32:00 16:32:00 2018-01-15 2018-01-15 [id number] Common 15:00:00 15:00:00 [facility] Results Test Description Test Time Test Comments Results Result Comments Source POCT-ACT 2020-06-21 12:07:00 Test Item Value Reference Range Interpretation Comme nts ACTIVATED CLOTTING TIME (BEAKER) 257 sec : 74-137 seconds, Baseline: TESTED AT (test code = 441) [address], [address]: Marketing Communication Manager/Techni nika ID = [id number] for MARY SOOD, DIONE BASIC METABOLIC [id number] 05:17:00 Test Item Value Reference Range Interpretation Comments SODIUM (BEAKER) 139 meq/L 136-145 (test code = 381) POTASSIUM (BEAKER) 3.8 meq/L 3.5-5.1 (test code = 379) CHLORIDE (BEAKER) 101 meq/L 98-107 (test code = 382) CO2 (BEAKER) (test 28 meq/L 22-29 code = 355) BLOOD UREA NITROGEN 9 mg/dL 7-21 (BEAKER) (test code = 354) CREATININE (BEAKER) 0.63 mg/dL 0.57-1.25 (test code = 358) GLUCOSE RANDOM 91 mg/dL 70-105 (BEAKER) (test code = 652) CALCIUM (BEAKER) 8.9 mg/dL 8.4-10.2 (test code = 697) EGFR (BEAKER) (test 93 mL/min/1.73 ESTIMA AUDRA GFR IS code = 1092) sq m NOT ACCURATE CREATININE CLEARANCE IN PREDICTING GLOMERULAR FILTRATION RATE . ESTIMATED GFR I S NOT APPLICABLE FOR DIALYSIS PATIEN Marketing Communication Manager ID Carlton CAMARA WCBC (HEMOGRAM ONLY)2020-06-21 04:25:00 Test Item Value Reference Range Interpretation Comments WHITE BLOOD CELL COUNT (BEAKER) 7.4 K/ L 3.5-10.5 (test code = 775) RED BLOOD CELL COUNT (BEAKER) 3.83 M/ L 3.93-5.22 L (test code = 761) HEMOGLOBIN (BEAKER) (test code = 12.0 GM/DL 11.2-15.7 410) HEMATOCRIT (BEAKER) (test code = 37.2 % 34.1-44.9 411) MEAN CORPUSCULAR VOLUME (BEAKER) 97.1 fL 79.4-94.8 H (test code = 753) MEAN CORPUSCULAR HEMOGLOBIN 31.3 pg 25.6-32.2 (BEAKER) (test code = 751) MEAN CORPUSCULAR HEMOGLOBIN CONC 32.3 GM/DL 32.2-35.5 (BEAKER) (test code = 752) RED CELL DISTRIBUTION WIDTH 13.6 % 11.7-14.4 (BEAKER) (test code = 412) PLATELET COUNT (BEAKER) (test 486 K/CU MM 150-450 H code = 756) MEAN PLATELET VOLUME (BEAKER) 8.8 fL 9.4-12.3 L (test code = 754) NUCLEATED RED BLOOD CELLS 0 /100 WBC 0-0 (BEAKER) (test code = 413) SARS-COV2/RT-PCR ([facility])2020-06-20 09:52:00 Test Item Value Reference Range Interpretation Comments SARS-COV2/RT-PCR (test Negative Not Detected, Negative, code = 8046894) See external report for linked test SARS-COV-[address] [facility] (test code = 5600035) Negative result for this test determines that SARS-CoV-2 RNA was not present in the specimen above the Limit of Detection (LOD). However, Negative results do not preclude SARS-CoV-2 infection and should not be used as the sole basis for treatment or patient management decisions. Negative results mustbe combined with clinical observations, patient history, and epidemiological information. A false negative result may occur if a specimen is improperly collected, transported or handled. A false negative result should be considered if patient's recent exposures or clinical presentation indicate that COVID-19 (SARS-CoV-2) is likely and diagnostic tests for other causes of illness are negative. Re-testing should be considered in cases of suspected false negatives.The limit of detection for this assay is 800 copies/mL.This SARS CoV-2 test is a real-time RT-PCR test intended for the qualitative detection of nucleic acid from SARS-CoV-2 in a nasopharyngeal swab specimen collected from individuals susp ected of COVID-19 by their healthcare provider.This test has not been Food and Drug Administration (FDA) cleared or approved. This is a modified version of an approved Emergency Use Authorization (EUA) and is in the process of review by the FDA. Once authorized by the FDA, the issued EUA will be effective until the declaration that circumstances exist justifying the authorization of the emergency use of in vitro diagnostic tests for detection and/or diagnosis of COVID-19 is terminated under Section 564(b)(2) of the Act or the EUA is revoked under Section 564(g) of the Act.Fact Sheet for Healthcare Providers:https://www.[employer].Kwanji/sites/default/files/product/documents/Fact_Shee a_HI_Phxcgqlsx_Iuxa_LZQV-AqG-3.pdfFact Sheet for Healthcare Patients:https://www.[employer].Kwanji/sites/default/files/product/ documents/Yleu_Iowai_Exebzweg_Hqyo_PCEH-BlK-9.pdfPerforming Laboratory:[facility].[place], [place] [id number] 04:16:00 Test Item Value Reference Range Interpretation Comments MAGNESIUM (BEAKER) 2.0 mg/dL 1.6-2.6 Specimen slightly (test code = 627) hemolyzed Marketing Communication Manager ID - PIAYA [id number] 04:16:00 Test Item Value Reference Range Interpretation Comments PHOSPHORUS (BEAKER) 4.1 mg/dL 2.3-4.7 Specimen slightly (test code = 604) hemolyzed Marketing Communication Manager ID - PIAYA LBASIC METABOLIC [id number] 04:16:00 Test Item Value Reference Range Interpretation Comments SODIUM (BEAKER) 140 meq/L 136-145 (test code = 381) POTASSIUM (BEAKER) 4.2 meq/L 3.5-5.1 Specimen slightly (test code = 379) hemolyzed CHLORIDE (BEAKER) 101 meq/L 98-107 (test code = 382) CO2 (BEAKER) (test 29 meq/L 22-29 code = 355) BLOOD UREA NITROGEN 5 mg/dL 7-21 L (BEAKER) (test code = 354) CREATININE (BEAKER) 0.58 mg/dL 0.57-1.25 Specimen slightly (test code = 358) hemolyzed GLUCOSE RANDOM 84 mg/dL 70-105 (BEAKER) (test code = 652) CALCIUM (BEAKER) 8.9 mg/dL 8.4-10.2 (test code = 697) EGFR (BEAKER) (test 102 mL/min/1.73 ESTIM ATED GFR IS code = 1092) sq m NOT ACCURATE CREATININE CLEARANCE IN PREDICTING GLOMERULAR FILTRATION RATE . ESTIMATED GFR I S NOT APPLICABLE FOR DIALYSIS PATIEN TS. Marketing Communication Manager ID - PIAYA LPROTHROMBIN TIME/[id number] 03:58:00 Test Item Value Reference Range Interpretation Comments PROTIME (BEAKER) (test code = 12.1 seconds 11.9-14.2 759) INR (BEAKER) (test code = 370) 0.93 <=5.90 Effective 11/12/2018: PT Reference Range ChangeNew: 11.9-14.2 Previous: 11.7- 14.7RECOMMENDED COUMADIN/WARFARIN INR THERAPY RANGESSTANDARD DOSE: 2.0-3.0 Includes: PROPHYLAXIS for venous thrombosis, systemic embolization; TREATMENT for venous thrombosis and/or pulmonary embolus.HIGH RISK: Target INR is2.5-3.5 for patients wiht mechanical heart valves.CBC (HEMOGRAM ONLY)2020-06-20 03:38:00 Test Item Value Reference Range Interpretation Comments WHITE BLOOD CELL COUNT (BEAKER) 8.4 K/ L 3.5-10.5 (test code = 775) RED BLOOD CELL COUNT (BEAKER) 3.56 M/ L 3.93-5.22 L (test code = 761) HEMOGLOBIN (BEAKER) (test code = 11.2 GM/DL 11.2-15.7 410) HEMATOCRIT (BEAKER) (test code = 33.9 % 34.1-44.9 L 411) MEAN CORPUSCULAR VOLUME (BEAKER) 95.2 fL 79.4-94.8 H (test code = 753) MEAN CORPUSCULAR HEMOGLOBIN 31.5 pg 25.6-32.2 (BEAKER) (test code = 751) MEAN CORPUSCULAR HEMOGLOBIN CONC 33.0 GM/DL 32.2-35.5 (BEAKER) (test code = 752) RED CELL DISTRIBUTION WIDTH 13.4 % 11.7-14.4 (BEAKER) (test code = 412) PLATELET COUNT (BEAKER) (test 463 K/CU MM 150-450 H code = 756) MEAN PLATELET VOLUME (BEAKER) 8.6 fL 9.4-12.3 L (test code = 754) NUCLEATED RED BLOOD CELLS 0 /100 WBC 0-0 (BEAKER) (test code = 413) CT, CTA AAA, W/ SARAH.EXT.[id number] 23:39:00 [facility] 1945 Sex: FFINAL REPORT CLINICAL HISTORY: Right toe discoloration, status post recent endovascular intervention, gated by postop hematoma. 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 FINDINGS: Multiple axial images of the abdomen and pelvis were performed before and after theuncomplicated administration of IV contrast, utilizing a CT aortogram and bilateral lower extremity runoff protocol. Coronal and sagittal reformats were created. 3-D imaging on an independent workstation was also performed for optimal visualization of the arterial system in accordance with the aortogram protocol. Oral contrast was not given. This exam was performed according to our departmental dose- optimization program, which includes automated exposure control, adjustment of the mA and/or kV according to patient size and/or use of the iterative reconstruction technique. Comparison: None. There is diffuse atherosclerotic calcification of the abdominal aorta and of the origins of its major vascular branches. There is no aortic dissection or aneurysm. No periaortic hematoma is present. There is no major branch vessel occlusion or hemodynamically significant intra-abdominal branch vessel stenosis. The celiac axis and SMA are normal in distribution and appear widely patent. There are single renal arteries bilaterally. The NIK, aortic and iliac bifurcations are patent. Right lower extremity: There is greater than 50% stenosis of the distal common femoral artery and proximal superficial femoralartery. A distal SFA stent is in place. At the anterior margin of the distal stent there is an enhancing extraluminal focus surrounding greater than 180 degrees of the stent measuring 1.9 x 1.4 x 3.2 cm. The stent appears patent with normal enhancement. The deep femoral artery is patent. There is greater than 50% stenosis of the proximal to mid popliteal artery. The anterior tibial artery, tibioperoneal trunk, posterior tibial artery and peroneal artery enhance to the level of the ankle/foot. Left lower extremity: There is 50% stenosis of the distal left common femoral artery. The deep femoral, superficial femoral, popliteal, anterior tibial, tibioperoneal trunk, posterior tibial and peroneal arteries are patent with scattered atherosclerotic calcification. Abdomen and pelvis: Lower chest: Calcified granuloma in the left lower lobe . Emphysematous changes in the lung bases No pleural effusion. No pneumothorax. Normal visualized cardiac contours. Liver: Parenchymal steatosis Gallbladder and biliary tree: No significant findings. Spleen: No significant findings. Adrenal Glands: No significant findings. Kidneys and ureters: No significant findings. Stomach and Duodenum: Small hiatal hernia Pancreas: No significant findings. Bowel: Colonic diverticulosis. Appendix: Nonvisualized Bladder: No significant findings. Reproductive organs: Previous hysterectomy Other: No free air, fluid or adenopathy Skeleton: No acute bony abnormality. IMPRESSION: A right SFA stent is patent. At the distal margin of the stent there is a 1.9 x 1.4 x 3.2 cm pseudoaneurysm. Diffuse atherosclerotic disease. Scatteredatherosclerotic stenosis of the bilateral lower extremity arterial system, as described above. Thereis bilateral three- vessel enhancement to the level of the ankle/foot. Nonvascular findings, as described above. Signed: Anshul Bustamante MDReport Verified Date/Time: 06/19/2020 23:39:57 BASIC METABOLIC [id number] 18:55:00 Test Item Value Reference Range Interpretation Comments SODIUM (BEAKER) 136 meq/L 136-145 (test code = 381) POTASSIUM (BEAKER) 3.7 meq/L 3.5-5.1 (test code = 379) CHLORIDE (BEAKER) 100 meq/L 98-107 (test code = 382) CO2 (BEAKER) (test 26 meq/L 22-29 code = 355) BLOOD UREA NITROGEN 5 mg/dL 7-21 L (BEAKER) (test code = 354) CREATININE (BEAKER) 0.59 mg/dL 0.57-1.25 (test code = 358) GLUCOSE RANDOM 83 mg/dL 70-105 (BEAKER) (test code = 652) CALCIUM (BEAKER) 9.1 mg/dL 8.4-10.2 (test code = 697) EGFR (BEAKER) (test 100 mL/min/1.73 ESTIM ATED GFR IS code = 1092) sq m NOT ACCURATE CREATININE CLEARANCE IN PREDICTING GLOMERULAR FILTRATION RATE . ESTIMATED GFR I S NOT APPLICABLE FOR DIALYSIS PATIEN TS. Marketing Communication Manager ID - RAE CPT/[id number] 18:48:00 Test Item Value Reference Range Interpretation Comments PROTIME (BEAKER) (test code = 11.8 seconds 11.9-14.2 L 759) INR (BEAKER) (test code = 370) 0.90 <=5.90 PARTIAL THROMBOPLASTIN TIME 29.7 seconds 22.5-36.0 (BEAKER) (test code = 760) Effective 11/12/2018: PT Reference Range ChangeNew: 11.9-14.2 Previous: 11.7- 14.7RECOMMENDED COUMADIN/WARFARIN INR THERAPY RANGESSTANDARD DOSE: 2.0-3.0 Includes: PROPHYLAXIS for venous thrombosis, systemic embolization; TREATMENT for venous thrombosis and/or pulmonary embolus.HIGH RISK: Target INR is2.5-3.5 for patients wiht mechanical heart valves.CBC W/PLT COUNT & AUTO [id number] 18:41:00 Test Item Value Reference Range Interpretation Comments WHITE BLOOD CELL COUNT (BEAKER) 8.7 K/ L 3.5-10.5 (test code = 775) RED BLOOD CELL COUNT (BEAKER) 3.47 M/ L 3.93-5.22 L (test code = 761) HEMOGLOBIN (BEAKER) (test code = 11.0 GM/DL 11.2-15.7 L 410) HEMATOCRIT (BEAKER) (test code = 33.5 % 34.1-44.9 L 411) MEAN CORPUSCULAR VOLUME (BEAKER) 96.5 fL 79.4-94.8 H (test code = 753) MEAN CORPUSCULAR HEMOGLOBIN 31.7 pg 25.6-32.2 (BEAKER) (test code = 751) MEAN CORPUSCULAR HEMOGLOBIN CONC 32.8 GM/DL 32.2-35.5 (BEAKER) (test code = 752) RED CELL DISTRIBUTION WIDTH 13.4 % 11.7-14.4 (BEAKER) (test code = 412) PLATELET COUNT (BEAKER) (test 461 K/CU MM 150-450 H code = 756) MEAN PLATELET VOLUME (BEAKER) 8.3 fL 9.4-12.3 L (test code = 754) NUCLEATED RED BLOOD CELLS 0 /100 WBC 0-0 (BEAKER) (test code = 413) NEUTROPHILS RELATIVE PERCENT 60 % (BEAKER) (test code = 429) LYMPHOCYTES RELATIVE PERCENT 30 % (BEAKER) (test code = 430) MONOCYTES RELATIVE PERCENT 7 % (BEAKER) (test code = 431) EOSINOPHILS RELATIVE PERCENT 2 % (BEAKER) (test code = 432) BASOPHILS RELATIVE PERCENT 1 % (BEAKER) (test code = 437) NEUTROPHILS ABSOLUTE COUNT 5.20 K/ L 1.56-6.13 (BEAKER) (test code = 670) LYMPHOCYTES ABSOLUTE COUNT 2.61 K/ L 1.18-3.74 (BEAKER) (test code = 414) MONOCYTES ABSOLUTE COUNT (BEAKER) 0.63 K/ L 0.24-0.36 H (test code = 415) EOSINOPHILS ABSOLUTE COUNT 0.15 K/ L 0.04-0.36 (BEAKER) (test code = 416) BASOPHILS ABSOLUTE COUNT (BEAKER) 0.08 K/ L 0.01-0.08 (test code = 417) IMMATURE GRANULOCYTES-RELATIVE 1 % 0-1 PERCENT (BEAKER) (test code = 2801)
== END 2021-12-19 15:36 | disposition home or self-care (01) | DRG 386 ==
LOC: ER 07:58 → ERHOLD 11:31 → 2ND 16:59
PROVIDERS: ADMIT Family Medicine; ATTEND Family Medicine
DX: K51.018 Ulcerative (chronic) pancolitis with other complication (principal); Z68.1 Body mass index [BMI] 19.9 or less, adult; A04.72 Enterocolitis due to Clostridium difficile, not specified as recurrent; I10 Essential (primary) hypertension; E78.00 Pure hypercholesterolemia, unspecified; R63.4 Abnormal weight loss; F17.210 Nicotine dependence, cigarettes, uncomplicated; Z20.822 Contact with and (suspected) exposure to COVID-19
CPT/HCPCS: 36415; 71045; 74177; 80048; 80053; 80061; 80076; 81015; 82150; 82274; 83690; 83735; 83880; 84132; 84443; 84484; 85025; 85610; 87045; 87046; 87177; 87209; 87324; 87449; 89055; 93005; 96361; 96365; 96366; 96372; 96375; 99285; J0500; J2270; J2405; J3475; J3490; J7030; J7040; Q9967; U0003

== ENCOUNTER 2025-04-11 12:49 | Emergency (ER) | payer OTHER ==
[2025-04-11] MEDS ORDERED: NA CHLORIDE 0.9% 1,000 ML ONE (14:34)
[2025-04-11] MEDS ORDERED: ONDANSETRON 4 MG/2 ML VIAL ONE (14:34)
[2025-04-11 15:14] LABS: Absolute Lymphocytes (CBC) 2.1 K/uL (0.7-4.9); Hematocrit 36.9 % (36.0-45.0); Hemoglobin 12.6 g/dL (12.0-15.0); MCH 29.5 pg (27.0-35.0); MCHC 34.1 g/dL (32.0-36.0); MCV 86.4 fL (80-100); MPV 7.6 fL (7.6-11.3); Nucleated RBC Absolute Count 0.0 (0-0); Nucleated Red Blood Cells % 0.0 % (0-0); RBC Red Blood Cell Count 4.27 M/uL (3.86-4.86); White Blood Count 7.40 thou/uL (4.3-10.9)
[2025-04-11 15:35] LABS: ALT/SGPT 17.0 U/L (13-56); AST/SGOT 17.0 U/L (15-37); Albumin 3.7 g/dL (3.4-5.0); Albumin/Globulin Ratio 1.1 (1.1-1.8); Alkaline Phosphatase 78.0 U/L (45-117); Anion Gap 8.9 mEq/L (5.0-15.0); BUN Blood Urea Nitrogen 8.0 mg/dL (7-18); Globulin 3.3 g/dL (2.3-3.5); Glucose Level 80.0 mg/dL (74-106); Lipase 14.0 U/L (13-75); Potassium 3.9 mEq/L (3.5-5.1)
[2025-04-11 15:35] LABS: Urine Microscopic Reflex YN NO UMIC
--- NOTE | 2025-04-11 16:53 | RAD REPORT ---
EXAMINATION: Abdomen Pelvis W Contrast CLINICAL INDICATION: Female, 79 years old.ABD PAIN TECHNIQUE: CT abdomen and pelvis was performed, after the administration of IV contrast, as per [facility]. Axial, sagittal and coronal reconstructions were obtained. One or more of the following dose reduction techniques were used: Automated exposure control, adjustment of the mA and/o r kV according to patient size, and/or iterative reconstruction. Unless otherwise specified, incidental findings do not require dedicated imaging follow-up. [id number]. COMPARISON: 12/15/2021 FINDINGS: LOWER CHEST: Partially imaged left lower lobe pulmonary nodule measuring 8 mm which is unchanged. No significant pericardial effusion. Small hiatal hernia with circumferential thickening of the esophagus which could reflect esophagitis. Mitral annular calcifications. UPPER GI: No acute findings LIVER: Hepatic steatosis, but otherwise unremarkable. GALLBLADDER/BILE DUCTS: No biliary ductal dilatation.? PANCREAS: No mass, ductal dilation, or karlo-pancreatic fluid. SPLEEN: Unremarkable. ADRENALS: No adrenal masses. KIDNEYS AND URETERS: No hydronephrosis. No suspicious renal mass. No renal calculi. No ureteral calcu li. ABDOMINAL AORTA AND OTHER VESSELS: Severe atherosclerotic changes. No aortic aneurysm. PERITONEUM: No abnormal free fluid. No free air. LYMPH NODES: No pathologic lymphadenopathy. ABDOMINAL WALL: Unremarkable SMALL BOWEL/COLON: Small bowel has normal course and caliber. No colonic wall thickening or pericolon ic inflammatory changes. Normal appendix. Mild diverticulosis without diverticulitis. URINARY BLADDER: Underdistended but grossly unremarkable. REPRODUCTIVE ORGANS: No pathologic process. MUSCULOSKELETAL: Grade 1 anterolisthesis of L4 and L5. Degenerative changes are present throughout th e lumbar spine. ADDITIONAL FINDINGS: None. IMPRESSION: No acute findings within the abdomen or pelvis. Incidental findings as noted above.
[2025-04-11] MEDS ORDERED: LIDOCAINE VISCOUS 2% 10ML ORAL SOLN ONE (17:45)
[2025-04-11] MEDS ORDERED: MAGNES/ALUMIN/SIMET 30ML UCUP ONE (17:45)
--- NOTE | 2025-04-11 17:45 | ER ---
Nurse's Notes [facility] Name: Johnna Brown Age: 79 yrs Sex: Female : 1945 Arrival Date: 04/11/2025 Time: 12:49 Bed 15 Private MD: Diagnosis: Gastro-esophageal reflux disease without esophagitis Presentation: 04/11 13:08 Chief complaint: Patient states: R sided abd pain that has been intermittent x weeks. ss Coronavirus screen: Client denies travel out of the [place] in the last 14 days. Ebola Screen: Patient denies exposure to infectious person. Patient denies travel to an Ebola-affected area in the 21 days before illness onset. Initial Sepsis Screen: Does the patient meet any 2 criteria? No. Patient's initial sepsis screen is negative. Does the patient have a suspected source of infection? No. Patient's initial sepsis screen is negative. Risk Assessment: Do you want to hurt yourself or someone else? Patient reports no desire to harm self or others. Onset of symptoms is unknown. 13:08 Method Of Arrival: Ambulatory ss 13:08 Acuity: KYLE 3 ss Triage Assessment: 17:30 General: Appears in no apparent distress. Behavior is calm, cooperative. db Historical: - Allergies: 13:10 Ciprofloxacin; ss - PMHx: 13:10 Back pain; Cdiff; Colitis; Hypercholesterolemia; Hypertension; ss - PSHx: 13:10 Appendectomy; pipo leg stents; hysterectomy; Neck sx; ss - Immunization history:: Adult Immunizations unknown. - Infectious Disease History:: Denies. - Social history:: Smoking status: Patient reports the use of cigarette tobacco products, smokes one pack cigarettes per day. Screenin:40 [facility] ED Fall Risk Assessment (Adult) History of falling in the last 3 months, db including since admission No falls in past 3 months (0 pts) Confusion or Disorientation No (0 pts) Intoxicated or Sedated No (0 pts) Impaired Gait No (0 pts) Mobility Assist Device Used No (0 pt) Altered Elimination No (0 pt) Score/Fall Risk Level 0 - 2 = Low Risk Oriented to surroundings, Maintained a safe environment. Abuse screen: Denies threats or abuse. Denies injuries from another. Nutritional screening: No deficits noted. Tuberculosis screening: No symptoms or risk factors identified. Assessment: 15:30 Reassessment: Patient appears in no apparent distress at this time. Patient and/or db family updated on plan of care and expected duration. Pain level reassessed. Patient is alert, oriented x 3, equal unlabored respirations, skin warm/dry/pink. General: Appears in no apparent distress. comfortable, Behavior is calm, cooperative. Pain: Complains of pain in abdomen. Neuro: Level of Consciousness is awake, alert, obeys commands, Oriented to person, place, time, situation. Respiratory: Airway is patent Respiratory effort is even, unlabored, Respiratory pattern is regular, symmetrical. GI: Bowel sounds present X 4 quads. Abd is soft. 17:00 Reassessment: Patient appears in no apparent distress at this time. Patient and/or db family updated on plan of care and expected duration. Pain level reassessed. Patient is alert, oriented x 3, equal unlabored respirations, skin warm/dry/pink. Vital Signs: 13:08 BP 140 / 60; Pulse 79; Resp 16; Temp 97.9; Pulse Ox 96% on R/A; Weight 58.06 kg; Height ss 5 ft. 0 in. ; Pain 6/10; 15:30 BP 112 / 54; Pulse 57; Resp 16; Pulse Ox 97% on R/A; db 16:00 BP 149 / 60; Pulse 60; Resp 16; Pulse Ox 96% on R/A; db 17:30 BP 157 / 49; Pulse 71; Resp 16; Pulse Ox 95% on R/A; db 13:08 Body Mass Index 25.00 (58.06 kg, 152.4 cm) ss 13:08 Pain Scale: Adult ss ED Course: 12:53 Patient arrived in ED. al6 13:02 Julius Doll, MARY[facility]C [facility] dr5 13:02 August Thomas MD is Attending Physician. dr5 13:10 Triage completed. ss 13:10 Arm band placed on right wrist. ss 14:09 Patient placed in an exam room, on a stretcher. cc6 14:27 Iza Butcher, INDIGO is Primary Nurse. db 15:00 Initial lab(s) drawn, by me, sent to lab. Inserted saline lock: 20 gauge in right db antecubital area, using aseptic technique. Blood collected. Flushed with 10 mL NS. 16:34 CT Abd/Pelvis - IV Contrast Only In Process Unspecified. EDMS 17:00 Bed in low position. Call light in reach. Side rails up X 1. Provided Education on: db followup. Pulse ox on. NIBP on. Warm blanket given. Pillow given. 17:51 No provider procedures requiring assistance completed. IV discontinued, intact, db bleeding controlled, No redness/swelling at site. Administered Medications: 15:00 Drug: Ondansetron IVP 4 mg IVP once; over 2 minutes Route: IVP; Site: right antecubital;db 17:50 Follow up: Response: No adverse reaction; Nausea is decreased ss 15:00 Drug: NS 0.9% IV 1000 ml IV at 1 bolus Per protocol; to be given as a bolus over 60 db minutes Route: IV; Rate: 1 bolus; Site: right antecubital; 17:51 Follow up: IV Status: Completed infusion; IV Intake: 1000ml ss 17:50 Drug: GI Cocktail without - (Maalox PO 30 ml, Lidocaine Mucous Membrane 2 % 15 ss ml) PO once Route: PO; 17:51 Follow up: Response: Medication Administered at Departure ss Medication: 17:40 VIS not applicable for this client. db Intake: 17:51 IV: 1000ml; Total: 1000ml. Outcome: 17:45 Discharge ordered by MD. dr5 17:51 Discharged to home ambulatory, with family, ss 17:51 Condition: good 17:51 Discharge instructions given to patient, family, Instructed on discharge instructions, follow up and referral plans. medication usage, Demonstrated understanding of instructions, follow-up care, medications, Prescriptions given X 2, 17:51 Patient left the ED. Signatures: Dispatcher [employer] EDNV Maritza Hagen RN RN Iza Butcher RN RN db Romina Lui RN RN cc6 Julius Doll, MARY-C EXPLOSIVE OPERATOR-5 Sana Castellanos Corrections: (The following items were deleted from the chart) 17:57 17:51 No provider procedures requiring assistance completed. db 17:57 17:51 Patient did not have IV access during this emergency room visit. db
--- NOTE | 2025-04-11 17:45 | EDPHYS ---
Physician Documentation [facility] Name: Johnna Brown Age: 79 yrs Sex: Female : 1945 Arrival Date: 04/11/2025 Time: 12:49 Bed 15 Private MD: ED Physician August Thomas HPI: 04/11 16:57 This 79 yrs old Female presents to ER via Ambulatory with complaints of dr5 Abdominal Pain. 18:07 Patient reports abdominal pain is epigastric in nature with burning and belching. dr5 Patient reports this is intermittent and comes and goes for the last 2 to 3 weeks. Patient denies any pain during initial exam or throughout ER stay. Patient denies nausea, vomiting, diarrhea, chest pain, shortness of breath.. Historical: - Allergies: 13:10 Ciprofloxacin; ss - PMHx: 13:10 Back pain; Cdiff; Colitis; Hypercholesterolemia; Hypertension; ss - PSHx: 13:10 Appendectomy; pipo leg stents; hysterectomy; Neck sx; ss - Immunization history:: Adult Immunizations unknown. - Infectious Disease History:: Denies. - Social history:: Smoking status: Patient reports the use of cigarette tobacco products, smokes one pack cigarettes per day. ROS: 18:07 Constitutional: as per hpi dr5 Exam: 18:07 Constitutional: This is a well developed, well nourished patient who is awake, alert, dr5 and in no acute distress. Head/Face: Normocephalic, atraumatic. Eyes: Pupils equal round and reactive to light, extra-ocular motions intact. Lids and lashes normal. Conjunctiva and sclera are non-icteric and not injected. Cornea within normal limits. Periorbital areas with no swelling, redness, or edema. Neck: Trachea midline, no thyromegaly or masses palpated, and no cervical lymphadenopathy. Supple, full range of motion without nuchal rigidity, or vertebral point tenderness. No Meningismus. Chest/axilla: Normal chest wall appearance and motion. Nontender with no deformity. No lesions are appreciated. Cardiovascular: Regular rate and rhythm with a normal S1 and S2. Normal PMI, no JVD. No pulse deficits. Respiratory: Lungs have equal breath sounds bilaterally, clear to auscultation. No rales, rhonchi or wheezes noted. No increased work of breathing, no retractions or nasal flaring. Abdomen/GI: Soft, non-tender, non-distended Back: No spinal tenderness. No costovertebral tenderness. Full range of motion. Skin: Warm, dry with normal turgor. Normal color with no rashes, no lesions, and no evidence of cellulitis. MS/ Extremity: Pulses equal, no cyanosis. Neurovascular intact. Full, normal range of motion. Neuro: Awake and alert, GCS 15, oriented to person, place, time, and situation. Cranial nerves II-XII grossly intact. Motor strength 5/5 in all extremities. Sensory grossly intact. Cerebellar exam normal. Normal gait. Vital Signs: 13:08 BP 140 / 60; Pulse 79; Resp 16; Temp 97.9; Pulse Ox 96% on R/A; Weight 58.06 kg; Height ss 5 ft. 0 in. ; Pain 6/10; 15:30 BP 112 / 54; Pulse 57; Resp 16; Pulse Ox 97% on R/A; db 16:00 BP 149 / 60; Pulse 60; Resp 16; Pulse Ox 96% on R/A; db 17:30 BP 157 / 49; Pulse 71; Resp 16; Pulse Ox 95% on R/A; db 13:08 Body Mass Index 25.00 (58.06 kg, 152.4 cm) ss 13:08 Pain Scale: Adult ss MDM: 13:02 Medical Screening Exam initiated dr5 18:07 Differential diagnosis: cholecystitis, Cholelithiasis, diverticulitis, gastritis, dr5 gastroesophageal reflux disease. Data reviewed: vital signs, nurses notes, lab test result(s), amylase and lipase, CBC, white blood cell count, hemoglobin, hematocrit, platelets, electrolytes, sodium, potassium, chloride, serum bicarbonate, BUN, creatinine, serum glucose, radiologic studies, CT scan. Consideration of Admission/Observation Escalation of care including admission/observation considered. Escalation considered patient found to have abnormality on CT scan. I considered the following discharge prescriptions or medication management in the emergency department I discussed and recommended Over The Counter medications, Medications were administered in the Emergency Department. See MAR. Historians other than the Patient: Daughter/Son: Daughter. Care significantly affected by the following chronic conditions: Hyperlipidemia, hypertension, colitis. Care significantly affected by the following Social Determinants of Health: Poor access to healthcare and/or lack of insurance, Poor access to transportation, Problems related to employment. Counseling: I had a detailed discussion with the patient and/or guardian regarding the historical points, exam findings, and any diagnostic results supporting the discharge/admit diagnosis, the presence of at least one elevated blood pressure reading (>120/80) during this emergency department visit, lab results, radiology results, the need for outpatient follow up, for definitive care, a family practitioner, a community service aide, to return to the emergency department if symptoms worsen or persist or if there are any questions or concerns that arise at home. Medication response: GI Cocktail relieved the patient's pain. The symptoms have resolved. Response to treatment: the patient's symptoms have resolved after treatment. Special discussion: I discussed with the patient/guardian in detail that at this point there is no indication for admission to the hospital. It is understood, however, that if the symptoms persist or worsen the patient needs to return immediately for re-evaluation. Based on the history and exam findings, there is no indication for further emergent testing or inpatient evaluation. I discussed with the patient/guardian the need to see the community service aide for further evaluation of the symptoms. I discussed with the patient/guardian the need to see the primary care provider for further evaluation of the symptoms. ED course: All labs and CT scan were printed and discussed with patient as well as daughter. All questions were answered. Will place patient on Protonix as well as Pepcid for GERD. And have her follow-up primary care doctor this week. All question answered. Strict ER precautions given. 04/11 14:02 Order name: CBC with Diff; Complete Time: 15:22 dr5 04/11 14:02 Order name: CMP; Complete Time: 15:49 dr5 04/11 14: Order name: Lipase; Complete Time: 15:49 dr5 04/11 14:02 Order name: UA Rfx Neo Cult if indicated; Complete Time: 15:49 dr5 04/11 15:49 Order name: CT Abd/Pelvis - IV Contrast Only; Complete Time: 16:56 dr5 04/11 14:02 Order name: IV Saline Lock; Complete Time: 15:14 dr5 04/11 14:02 Order name: Labs collected and sent; Complete Time: 15:14 dr5 Administered Medications: 15:00 Drug: Ondansetron IVP 4 mg IVP once; over 2 minutes Route: IVP; Site: right antecubital;db 17:50 Follow up: Response: No adverse reaction; Nausea is decreased ss 15:00 Drug: NS 0.9% IV 1000 ml IV at 1 bolus Per protocol; to be given as a bolus over 60 db minutes Route: IV; Rate: 1 bolus; Site: right antecubital; 17:51 Follow up: IV Status: Completed infusion; IV Intake: 1000ml ss 17:50 Drug: GI Cocktail without - (Maalox PO 30 ml, Lidocaine Mucous Membrane 2 % 15 ss ml) PO once Route: PO; 17:51 Follow up: Response: Medication Administered at Departure ss Disposition: 18:23 Co-signature as Attending Physician, August Thomas MD I reviewed the patient's care rn provided by the Advanced Practice Provider and agree with the diagnosis and treatment plan. Disposition Summary: 04/11/25 17:45 Discharge Ordered Notes: Location: Home dr5 Condition: Stable dr5 Diagnosis - Gastro-esophageal reflux disease without esophagitis dr5 Followup: dr5 - With: Emergency Department - When: As needed - Reason: Worsening of condition Followup: dr5 - With: Private Physician - When: 1 - 2 days - Reason: Recheck today's complaints, Continuance of care, Re-evaluation by your physician Discharge Instructions: - Discharge Summary Sheet dr5 - Food Choices for Gastroesophageal Reflux Disease, Adult dr5 - Gastroesophageal Reflux Disease, Adult dr5 Forms: - Medication Reconciliation Form dr5 - Patient Portal Instructions dr5 - Leadership Thank You Letter dr5 Prescriptions: - Protonix 40 mg Oral Tablet - take 1 tablet ORAL route once daily; 30 tablet; Refills: 0, Product Selection dr5 Permitted - Pepcid 20 mg Oral Tablet - take 1 tablet ORAL route once daily for 10 days; 10 tablet; Refills: 0, Product dr5 Selection Permitted Signatures: Dispatcher [employer] August Lawrence MD MD rn Blanchard, Shelby, RN RN ss Benton, Danielle, RN RN db Rhodes, Dustin, NUNU [id number]
[2025-04-11 18:58] VITALS: BP 140/60; TEMP 97.9; O2SAT 96
== END 2025-04-11 17:51 | disposition home or self-care (01) ==
LOC: ER 12:49
DX: K21.9 Gastro-esophageal reflux disease without esophagitis (principal); F17.210 Nicotine dependence, cigarettes, uncomplicated
CPT/HCPCS: 96361; 85025; 36415; 81003; 83690; 80053; 74177; 96374; 99284; Q9967; J2405; J7030